=== PATIENT | male | born 1950 | race Caucasian/White ===

== ENCOUNTER 2020-06-24 12:34 | Inpatient (IN) | payer MEDICARE, MEDICAID ==
[~2020-06-24] VITALS: Ht 167.6 cm; Wt 89.8 kg
[2020-06-24 12:45] VITALS: BP 135/94
--- NOTE | 2020-06-24 12:45 | NUR ---
ED Nurse Note: Pt was brought in by ambulance from [facility] d/t generalized weakness and abnormal labs. Per SNF, Cr and BUN were elevated. Pt is A+Ox1 @ arrival, which is his baseline per SNF staff. Respirations even and unlabored on room air. Vitals stable as documented. Per SNF, pt was positive for Covid, but then tested negative on 06/03/20. No acute distress noted at this time. Pt placed on monitor.
[2020-06-24] MEDS ORDERED: LIPITOR80 MG ORAL (13:09)
[2020-06-24] MEDS ORDERED: ALLOPURINOL300 M1 ORAL (13:09)
[2020-06-24] MEDS ORDERED: OXYTROL1 EACH TD (13:09)
[2020-06-24] MEDS ORDERED: CARVEDILOL12.5 MG ORAL (13:09)
[2020-06-24] MEDS ORDERED: OMEPRAZOLE20 M2 ORAL (13:09)
[2020-06-24] MEDS ORDERED: FLOMAX0.4 MG ORAL (13:09)
[2020-06-24] MEDS ORDERED: METFORMIN HCL1000 M1 ORAL (13:09)
[2020-06-24] MEDS ORDERED: REPAGLINIDE1 MG PO (13:09)
[2020-06-24] MEDS ORDERED: GABAPENTIN100 MG ORAL (13:09)
[2020-06-24] MEDS ORDERED: LOSARTAN POTASS50 MG ORAL (13:09)
[2020-06-24] MEDS ORDERED: IBUPROFEN600 M1 ORAL (13:09)
[2020-06-24] MEDS ORDERED: SYNTHROID25 MCG ORAL (13:09)
[2020-06-24] MEDS ORDERED: HUMALOG100 UNIT/4 SUBQ (13:09)
[2020-06-24] MEDS ORDERED: PROSCAR5 MG ORAL (13:09)
[2020-06-24] MEDS ORDERED: ACETAMINOPHEN325 M1 ORAL (13:09)
[2020-06-24] MEDS ORDERED: TRAMADOL HCL50 MG ORAL (13:09)
[2020-06-24] MEDS ORDERED: LITHIUM CARBON300 MG ORAL (13:09)
--- NOTE | 2020-06-24 13:16 | Emergency Room Report ---
History of Present Illness General Chief Complaint: Abnormal Labs Source: Medical Record (Mook Max MD) Present Illness HPI Disclaimer: Please note that this report is being documented using [employer] technology. This can lead to erroneous entry secondary to incorrect interpretation by the dictating instrument. HPI: 70-year-old male history of dementia presents for evaluation of abnormal labs. Patient found to have elevated BUN and creatinine on routine lab testing according to PMD. He is a poor historian has a history of dementia and is alert and oriented to self only. No acute distress reported from patient. Does not appear to be in distress. No further information obtained from patient. 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 EOMI. Cardiovascular: RRR. S1 and S2 normal. No murmur appreciated Resp: Normal work of breathing. No cough, wheezing or crackles appreciated Abdomen: Abdomen is soft, nondistended. Skin: Intact. No abrasions, laceration or rash over the exposed skin MSK: Normal tone and bulk. Moving all extremities. No obvious deformity. Neuro: Awake and alert to self only. No acute distress (Mook Max MD) Medical Decision Making Diagnostic Impression: Primary Impression: Acute kidney failure Qualified Codes: N17.9 - Acute kidney failure, unspecified ER Course Is a 70-year-old male presenting from nursing facility for evaluation of elevated BUN/creatinine. According to paperwork BUN was 54 and creatinine was 3.1. Will redraw labs and arrange for admission. IV fluids started. (Mook Max MD) ER Course 70-year-old male with CHAN unknown cause, history is limited, plan for admission to Dr. Daugherty for evaluation. prerenal vs intrinsic vs post renal chan Laboratory Tests Test 06/24/20 13:20 White Blood Count 11.2 K/UL (4.8-10.8) H Red Blood Count 4.34 M/UL (4.70-6.10) L Hemoglobin 13.0 G/DL (14.2-18.0) L Hematocrit 40.2 % (42.0-52.0) L Mean Corpuscular Volume 93 FL (80-99) Mean Corpuscular Hemoglobin 29.9 PG (27.0-31.0) Mean Corpuscular Hemoglobin Concent 32.3 G/DL (32.0-36.0) Red Cell Distribution Width 14.4 % (11.6-14.8) Platelet Count 307 K/UL (150-450) Mean Platelet Volume 7.0 FL (6.5-10.1) Neutrophils (%) (Auto) 69.3 % (45.0-75.0) Lymphocytes (%) (Auto) 20.9 % (20.0-45.0) Monocytes (%) (Auto) 4.6 % (1.0-10.0) Eosinophils (%) (Auto) 4.1 % (0.0-3.0) H Basophils (%) (Auto) 1.1 % (0.0-2.0) Urine Color Pale yellow Urine Appearance Clear Urine pH 5 (4.5-8.0) Urine Specific [place] 1.015 (1.005-1.035) Urine Protein 2+ (NEGATIVE) H Urine Glucose (UA) Negative (NEGATIVE) Urine Ketones Negative (NEGATIVE) Urine Blood Negative (NEGATIVE) Urine Nitrite Negative (NEGATIVE) Urine Bilirubin Negative (NEGATIVE) Urine Urobilinogen Normal MG/DL (0.0-1.0) Urine Leukocyte Esterase Negative (NEGATIVE) Urine RBC 0 /HPF (0 - 0) Urine WBC 0-2 /HPF (0 - 0) Urine Squamous Epithelial Cells Few /LPF (NONE/OCC) Urine Bacteria Occasional /HPF (NONE) Sodium Level 137 MMOL/L (136-145) Potassium Level 4.4 MMOL/L (3.5-5.1) Chloride Level 104 MMOL/L (98-107) Carbon Dioxide Level 22 MMOL/L (21-32) Anion Gap 11 mmol/L (5-15) Blood Urea Nitrogen 58 mg/dL (7-18) H Creatinine 2.9 MG/DL (0.55-1.30) H Estimated Glomerular Filtration Rate 21.6 mL/min (>60) Glucose Level 154 MG/DL (74-106) H Lactic Acid Level 1.20 mmol/L (0.4-2.0) Calcium Level 10.8 MG/DL (8.5-10.1) H Total Bilirubin 0.5 MG/DL (0.2-1.0) Aspartate Amino Transferase (AST) 15 U/L (15-37) Alanine Aminotransferase (ALT) 25 U/L (12-78) Alkaline Phosphatase 138 U/L (46-116) H Total Creatine Kinase 26 U/L (26-308) Creatine Kinase MB 1.1 NG/ML (0.0-3.6) Creatine Kinase MB Relative Index 4.2 Troponin I 0.000 ng/mL (0.000-0.056) Total Protein 8.4 G/DL (6.4-8.2) H Albumin 3.8 G/DL (3.4-5.0) Globulin 4.6 g/dL Albumin/Globulin Ratio 0.8 (1.0-2.7) L (Robles Garzon MD) Rhythm Strip Diag. Results Rhythm Strip Time: 14:35 EP Interpretation: yes Rate: 88 Rhythm: NSR, no PVC's, no ectopy (Robles Garzon MD) Last Vital Signs Date Time Temp Pulse Resp B/P (MAP) Pulse Ox O2 Delivery O2 Flow Rate FiO2 06/24/20 12:35 97.9 72 20 130/90 (103) 97 Room Air (Mook Max MD) Disposition: ADMITTED INPATIENT Condition: Stable Referrals: Guillaume Daugherty MD (PCP) Mook Max MD Jun 24, 2020 13:16 Robles Garzon MD Jun 24, 2020 15:20
--- NOTE | 2020-06-24 13:32 | NUR ---
ED Nurse Note: blood and urine sent to lab
[2020-06-24 14:05] LABS: APPEARANCE,URINE CLEAR; BILIRUBIN, URINE NEGATIVE (NEGATIVE); COLOR,URINE PALE YELLOW; GLUCOSE, URINE (UA) NEGATIVE (NEGATIVE); KETONES,URINE NEGATIVE (NEGATIVE); LEUKOCYTE ESTERASE ,URINE NEGATIVE (NEGATIVE); NITRITE,URINE NEGATIVE (NEGATIVE); PH,URINE 5 (4.5-8.0); PROTEIN,URINE 2+ (NEGATIVE); UROBILINOGEN,URINE NORMAL MG/DL (0.0-1.0)
[2020-06-24 14:08] LABS: BASOPHILS % (AUTO) 1.1 % (0.0-2.0); EOSINOPHILS % (AUTO) 4.1 % (0.0-3.0); HEMATOCRIT 40.2 % (42.0-52.0); LYMPHOCYTES % (AUTO) 20.9 % (20.0-45.0); MEAN CORPUSCULAR VOLUME 93 FL (80-99); MONOCYTES % (AUTO) 4.6 % (1.0-10.0); NEUTROPHILS % (AUTO) 69.3 % (45.0-75.0); PLATELET COUNT 307 K/UL (150-450); RED BLOOD COUNT 4.34 M/UL (4.70-6.10); RED CELL DISTRIBUTION WIDTH 14.4 % (11.6-14.8); WHITE BLOOD COUNT 11.2 K/UL (4.8-10.8)
[2020-06-24 14:29] LABS: ANION GAP 11 mmol/L (5-15); BLOOD UREA NITROGEN 58 mg/dL (7-18); CALCIUM 10.8 MG/DL (8.5-10.1); CARBON DIOXIDE 22 MMOL/L (21-32); CHLORIDE 104 MMOL/L (98-107); CREATININE 2.9 MG/DL (0.55-1.30); POTASSIUM 4.4 MMOL/L (3.5-5.1); SODIUM 137 MMOL/L (136-145)
--- NOTE | 2020-06-24 14:33 | Diagnostic Imaging Report ---
Procedure: XRAY Chest 1v Reason for study: Shortness of breath. Comparison films: None. FINDINGS: A single one view chest is obtained. Vascularity is normal. There is mild haziness left lung base. This may be related to pericardial fat pad or mild atelectasis. Streaky atelectasis also noted in the left perihilar region. Cardiac and mediastinal silhouette are within normal limits. CP angles are sharp. The bony thorax appear unremarkable. IMPRESSION: Left lung atelectasis.
[2020-06-24 14:38] LABS: ALANINE AMINOTRANSFERASE 25 U/L (12-78); ALBUMIN 3.8 G/DL (3.4-5.0); ALBUMIN/GLOBULIN RATIO 0.8 (1.0-2.7); ALKALINE PHOSPHATASE 138 U/L (46-116); ASPARTATE AMINO TRANSFERASE 15 U/L (15-37); BILIRUBIN,TOTAL 0.5 MG/DL (0.2-1.0); CKMB 1.1 NG/ML (0.0-3.6); CREATINE KINASE 26 U/L (26-308)
[2020-06-24 14:40] VITALS: BP 132/84
--- NOTE | 2020-06-24 15:06 | NUR ---
ED Nurse Note: Report given to ADINA Ruiz on 2E.
--- NOTE | 2020-06-24 15:40 | NUR ---
ED Nurse Note: Pt transferred safely to 2E on the monitor. Pt has no belongings
--- NOTE | 2020-06-24 16:00 | NUR ---
NURSE NOTES: Received pt from MAPPING SUPERVISORADINA Gutierrez. all admission assessments and instructions done, pt is awake and confused and orient x1, pt is in RA, no SOB or acute respiratory distress noted. pt has intact iv access RFA 20G SL. Pt is on continues heart monitoring. Dr Daugherty is aware about admission and all orders noted and carried out. RN put condom cath for pt and Dr Daugherty is aware. Dr Daugherty is aware BUN 58 CREA 2.9 and other lab results and V/S ordered consult with Dr De Leon. pt has wound on feet and redness sacral and buttock, took pictures and uploaded. all needs attended, bed is locked and is in the lowest position, call light within easy reach. will continue to monitor.
[2020-06-24 16:15] VITALS: BP 115/60
[2020-06-24] MEDS ORDERED: LORazepam Inj 2mg/ml 1ml IV PRN (16:15)
--- NOTE | 2020-06-24 17:15 | NUR ---
NURSE NOTES: Dr De Leon is aware about consult, she will come to visit pt. RN called SNF and all necessary information got from ADINA Lewis.
[2020-06-24] MEDS: cefTRIAXone 1 GM in D5W 55 ML IVPB SCH (17:40)
--- NOTE | 2020-06-24 19:10 | NUR ---
HAND-OFF: Report given to ADINA Yang. Pt is awake and stable, no stress noted, endorsed plan of care.
--- NOTE | 2020-06-24 19:11 | NUR ---
NURSE NOTES: Dr Larson called back and asked the name of sharon, RN informed MD about meds, waiting to call back. Addendum: 06/24/20 at 1912 by Joseph Hinson RN ERROR WRONG PT.
--- NOTE | 2020-06-24 19:21 | NUR ---
NURSE NOTES: Patient received from Joseph RN. Patient in stable condition. Alert and oriented x1. On room air saturating well at 96%. On NPO for swallow eval tomorrow AM. IV site at Right FA 20G patent and intact with 1/2NS running at 100mls/hr. Fall precautions in place. Side rails up x 3, bed in lowest position and locked. Bedside table and call light within reach. Will continue plan of care.
[2020-06-24 20:00] VITALS: BP 111/65
--- NOTE | 2020-06-24 20:00 | History and Physical Report ---
DATE OF ADMISSION: 06/24/2020 HISTORY OF PRESENT ILLNESS: This is a 70-year-old Malagasy male, who came to the emergency room for having confusion and was found to have acute renal failure. The patient is confused, has poor p.o. intake for the last few days. Ordered lab at skilled nursing, was found as acute renal failure, and sent to the ER. The patient is opening his eyes and moving his hand, but is confused. He has no distress. PAST MEDICAL HISTORY: Significant for COVID pneumonia, hypertension, hyperlipidemia, comorbid obesity, hypothyroidism, GERD, dysphagia, failure to thrive, and chronic back pain. MEDICATIONS: See the list. ALLERGIES: NKA. FAMILY HISTORY: Noncontributory. SOCIAL HISTORY: Lives at skilled nursing, mostly bedbound. REVIEW OF SYSTEMS: Cannot be obtained. PHYSICAL EXAMINATION: GENERAL: This is an elderly obese male, currently comfortable. VITAL SIGNS: Blood pressure is 115/60, pulse 81, respirations 18, and temperature 96.1. SKIN: Dry. HEENT: Eyes are open. NECK: Supple. CHEST: Bilateral decreased breath sounds. CARDIOVASCULAR: Regular rhythm. No gallop. No murmur. ABDOMEN: Soft. Positive bowel sounds. EXTREMITIES: Chronic venous stasis changes. GENITOURINARY: Deferred. LABORATORY DATA: White count 11,000, hemoglobin 13, hematocrit 40, platelets are 307,000. Chemistry panel, sodium 137, potassium 4.4, BUN 58, creatinine 2.9, glucose 154. Urine is showing 2+ protein. His imaging, chest x-ray, left lung atelectasis. ASSESSMENT AND PLAN: 1. Altered mental status. 2. Acute renal failure. 3. Hypertension. 4. Diabetes. 5. Metabolic encephalopathy. 6. History of COVID. We will currently admit on medical floor. NPO. Because of confusion, we will add ceftriaxone, lorazepam, and Tylenol. Consider Nephrology consult. Monitor BUN and creatinine and monitor. Swallow evaluation tomorrow. Genaro Daugherty M.D. DR: Jin JOB#: [id number] CC:
[2020-06-24] MEDS: Heparin 5000 units/ml inj SUBQ SCH (21:17)
[2020-06-25] VITALS: BP 114/55
[2020-06-25 04:00] VITALS: BP 108/50
[2020-06-25] MEDS: Heparin 5000 units/ml inj SUBQ SCH ×3 (05:13→22:10)
[2020-06-25 06:36] LABS: BASOPHILS % (AUTO) 1.1 % (0.0-2.0); EOSINOPHILS % (AUTO) 7.4 % (0.0-3.0); HEMATOCRIT 37.7 % (42.0-52.0); HEMOGLOBIN 12.1 G/DL (14.2-18.0); LYMPHOCYTES % (AUTO) 27.5 % (20.0-45.0); MEAN CORPUSCULAR VOLUME 94 FL (80-99); MONOCYTES % (AUTO) 6.5 % (1.0-10.0); NEUTROPHILS % (AUTO) 57.5 % (45.0-75.0); PLATELET COUNT 258 K/UL (150-450); RED CELL DISTRIBUTION WIDTH 14.6 % (11.6-14.8); WHITE BLOOD COUNT 8.2 K/UL (4.8-10.8)
--- NOTE | 2020-06-25 07:28 | NUR ---
HAND-OFF: Report given to Joseph HOLDEN. Patient in stable condition. Endorsed plan of care.
--- NOTE | 2020-06-25 07:30 | NUR ---
NURSE NOTES: Received pt from ADINA Yang.pt is sleeping, pt is in RA, no SOB or acute respiratory distress noted. pt has intact iv access RFA 20G is running well. Pt is on continues heart monitoring. pt is NPO due to order. pt has condom cath in place is working well. all needs attended, bed is locked and is in the lowest position, call light within easy reach. will continue to monitor.
[2020-06-25 07:32] LABS: ANION GAP 10 mmol/L (5-15); BLOOD UREA NITROGEN 46 mg/dL (7-18); CALCIUM 9.9 MG/DL (8.5-10.1); CARBON DIOXIDE 22 MMOL/L (21-32); CHLORIDE 107 MMOL/L (98-107); CREATININE 1.9 MG/DL (0.55-1.30); SODIUM 139 MMOL/L (136-145)
[2020-06-25 08:00] VITALS: BP 122/55
--- NOTE | 2020-06-25 11:14 | General Progress Note ---
Progress Note Progress Note full note dictated Reema De Leon MD Jun 25, 2020 11:14
[2020-06-25 11:54] VITALS: BP 123/64
--- NOTE | 2020-06-25 12:15 | NUR ---
NURSE NOTES: Urin specimen sent to lab, waiting for result.
[2020-06-25 12:46] LABS: APPEARANCE,URINE CLEAR; BILIRUBIN, URINE NEGATIVE (NEGATIVE); COLOR,URINE PALE YELLOW; GLUCOSE, URINE (UA) NEGATIVE (NEGATIVE); KETONES,URINE NEGATIVE (NEGATIVE); LEUKOCYTE ESTERASE ,URINE NEGATIVE (NEGATIVE); NITRITE,URINE NEGATIVE (NEGATIVE); PH,URINE 5 (4.5-8.0); PROTEIN,URINE NEGATIVE (NEGATIVE); UROBILINOGEN,URINE NORMAL MG/DL (0.0-1.0)
--- NOTE | 2020-06-25 14:02 | NUR ---
SWALLOW EVAL (full report found in care activity section) PATIENT REFERRED TO BY DR. VELASCO. DYSPHAGIA RISK FACTORS FOR THIS 70 Y.O. MALE: ACUTE: Acute renal failure, AMS, ongoing poor PO for the last few days, DM, metabolic encephalopathy. H/O: COVID pneumonia, hypertension, hyperlipidemia, comorbid obesity, hypothyroidism, GERD, dysphagia, failure to thrive, chronic back pain, schizoaffective disorder, COPD with acute exacerbation, PNA, ankylosing spondylitis lumbar region, idiopathic peripheral autonomic neuropathy, oropharyngeal dysphagia, acute embolism and thrombosis of unspec bilateral deep veins LE, gout, anxiety disorder, spinal stenosis. VITALS ON ROOM AIR: HR: 74; RR: 18; SP02 95% RELEVANT MEDS: Ativan (Agitation). PLOF: At SNF Patient consumes Puree and [place] Thick Liquids diet. PLOST: Full code, no wishes for alternative nutrition/hydration. PER RN: Patient was agitated on admission therefore, given Ativan. Patient continues to be very lethargic. Patient seen at bedside for swallow evaluation. MANAGER LINUX re-attempted to see the Patient on 3 occasions due to Patient being extremely lethargic and unable to maintain alertness for swallow evaluation. Patient did produce minimal verbal output with articulation being imprecise and lingual ROM/coordination being mild to mod reduced. Patient is edentulous, oral hygiene is fair. INITIAL IMPRESSIONS: Moderate to Marked Oropharyngeal Dysphagia compounded by significant cognitive behavioral deficits (AMS, Metabolic Encephalopathy) and exacerbated by Patient's h/o dysphagia (and having modified diet) with reduced and prolonged oral preparation and oropharyngeal transit times, oral motor ROM and coordination is reduced, laryngeal elevation present upon palpations appears slightly delayed, Patient noted with multiple swallows per 1 teaspoon, no significant overt s/s of aspiration with puree or nectar thick liquids. Patient given trials of puree solids and nectar thick liquids via teaspoon, oral phase characterized by moderately prolonged oral motor coordination and preparation of bolus, delayed A-P transit to BOT, mild oral residuals remaining in oral cavity Patient swallowed with multiple swallows, laryngeal elevation appears mildly delayed, no significant overt s/s of aspiration. Immediately after PO trials Patient fell back asleep. Given Patient's severity of lethargy, Patient is not safe for PO until Patient is more awake. PLEASE WAIT TO FEED PATIENT ANY PO UNTIL PATIENT IS ABLE TO BE POSITIONED UPRIGHT TO 90 DEGREES AND AWAKE FOR MEAL. PATIENT IS A HIGH RISK FOR ASPIRATION AND POOR PO GIVEN SIGNIFICANT COGNITIVE BEHAVIORAL DEFICITS (AMS, METABOLIC ENCEPHALOPATHY, LETHARGY) AND H/O DYSPHAGIA. RECOMMENDATIONS: 1. Moist Puree with [place] Thick Liquids via teaspoons only and 1 to 1 careful feeding while implementing aspiration precautions. --Defer to RD for type/supplements 2. MANAGER LINUX will f/u for diet tolerance and dysphagia tx. 3. Patient would benefit from MBSS while in house to assess swallow physiology. 4. Nursing please assist Patient with oral care/hygiene BID to minimize oral biofilm RN made aware of results, recommendations, and plan. MANAGER LINUX will f/u. MANAGER LINUX spoke with Dr. Asif regarding Patients lethargy and concern for aspiration risk. Thank you for this referral! MANAGER LINUX [phone] Addendum: 06/25/20 at 1408 by RAINA WESLEY MANAGER LINUX ERROR: PATIENT REFERRED TO FOR BEDSIDE SWALLOW EVALUATION BY DR. ASIF.
--- NOTE | 2020-06-25 14:18 | Diagnostic Imaging Report ---
EXAM: ULTRASOUND US Renal Comp CLINICAL HISTORY: Abdominal pain. COMPARISON: None TECHNIQUE: Ultrasound examination of the kidneys includes grayscale images, and color and spectral doppler analysis. FINDINGS: The right kidney measures 10.7 x 5 x 5.1 cm and the left kidney measures 10.7 x 6 x 5.2 cm. Cortical thickness and echogenicity are within normal limits. There is a right renal cyst. There is no hydronephrosis or stone seen bilaterally. Bladder appears trabeculated. IMPRESSION: NO OBSTRUCTIVE UROPATHY. BLADDER APPEARS TRABECULATED.
--- NOTE | 2020-06-25 15:30 | Consultation ---
DATE OF CONSULTATION: 06/25/2020 NEPHROLOGY CONSULTATION CONSULTING PHYSICIAN: Reema De Leon MD. REFERRING PHYSICIAN: Guillaume Daugherty MD. REASON FOR CONSULTATION: Acute renal failure. HISTORY OF PRESENT ILLNESS: The patient is an unfortunate 70-year-old male with past medical history significant for history of dementia, hypertension, COPD, diabetes, dysphagia and GERD, who was transferred to [facility] for evaluation of abnormal labs. The patient upon admission found to have a BUN of 58, creatinine 2.9. Upon evaluation in the ER, the patient was found to be having temperature of 97, pulse rate 72, respiratory rate of 27. The patient was evaluated in the ER, found to have an acute renal failure, was admitted on monitored bed. I was called for management of renal disease and electrolyte imbalance. PAST MEDICAL HISTORY: Including history of dementia, history of COPD, and history of hypertension, history of dyslipidemia, and history of diabetes. PAST SURGICAL HISTORY: None. ALLERGIES: No known drug allergies. MEDICATIONS: List was reviewed. SOCIAL HISTORY: He lives at . There is no current history of tobacco, alcohol, or drug use. FAMILY HISTORY: Noncontributory. REVIEW OF SYSTEMS: Unable to obtain. The patient at this point received sedation. He is opening his eyes with verbal stimuli and follow simple commands, but not able to provide appropriate answers to my questions. PHYSICAL EXAMINATION: VITAL SIGNS: The patient has temperature of 97, blood pressure 122/55, pulse rate of 76. HEENT: Extraocular movement intact. Pupils are reactive to light and accommodation. NECK: No JVP. No LAD. No thyromegaly. LUNGS: Clear to auscultation. CARDIAC: Regular rate and rhythm. S1-S2. No murmur. No rub. ABDOMEN: Soft, nontender, and nondistended. EXTREMITIES: No edema. No clubbing. No cyanosis. LABORATORY DATA: The patient has sodium 137, potassium 4.4, chloride 104, bicarb 22, BUN of 58, creatinine of 2.9. AST of 15, ALT of 25, and alkaline phosphatase was 138. CBC revealed WBC count of 11, hemoglobin of 13, hematocrit 40, platelet count of 307,000. UA revealed specific gravity of 1.015, protein 2+, wbc of 0 to 2, rbc of 0 to 2. ASSESSMENT: 1. Acute renal failure, ATN due to unstable hemodynamics. Rule out obstructive uropathy. Rule out hypertensive nephrosclerosis. 2. Hypertension, which at this point blood pressure is under well control. 3. Altered mental status, most likely due to medication. PLAN: Plan for the patient is obtaining UA, check the random urine creatinine ratio to calculate the proteinuria. Check the urine sodium and creatinine to calculate fractional excretion of sodium. Ultrasound of the kidney to evaluate the kidney size. Check the post-void residual volume. Avoid any NSAID or nephrotoxic. Monitor renal function and electrolytes closely. At the end, I would like to thank Dr. Daugherty for allowing me to participate in the care of this patient. Reema De Leon M.D. DR: FITO JOB#: [id number] CC:
--- NOTE | 2020-06-25 15:38 | NUR ---
CASE MANAGEMENT:REVIEW 70 YR OLD MALE BIBA FROM [facility]' CC: ABNORMAL LABS AND GENERALIZED WEAKNESS SI: ACUTE RENAL FAILURE 97.9 72 20 130/90 97% ON RA BUN+58 CR+2.9 GLUCOSE+154 IS: 1L NS BOLUS CHEST XRAY `BLOOD CX : TO TELEMETRY IS: HEPARIN SQ Q8HRS IV ROCEPHIN Q24 IVF@100/HR IV ATIVAN Q6HRS PRN RENAL US
[2020-06-25 16:00] VITALS: BP 121/64
[2020-06-25] MEDS: cefTRIAXone 1 GM in D5W 55 ML IVPB SCH (17:16)
--- NOTE | 2020-06-25 18:04 | NUR ---
NURSE NOTES:WOUND CARE NOTES:Pt presented on admission with Incontinence Associated Dermatitis, Multiple Pressure Injuries. Non-Blanching erythema without induration noted to sacrum . Bilat groin, scrotum and medial aspects of both upper thighs are grossly erythematous and denuded. Pt becomes agitated to slightest touch. R heel including Plantar aspect is boggy with non-Blanchable erythema. Tender when minimally palpated (L)6.5cm x (W)8cm. L Heel is boggy with non-Blanchable erythema. Tender when minimally palpated (L)7cm x (W)7.5cm. Haemosiderin with xerosis skin Bilat lower extremities. Tx.Plan: Apply Zinc-Oxide Paste to Bilat Groin, scrotum and medial aspects of both upper thighs Three Times daily and prn. Cover Sacrum and both hips with Optifoam drsgs. Change every 3 days and prn. Apply Cavilon Skin Barrier to Both heels and malleoli. Cover each site with Optifoam drgs. Change every 7 days and prn. Apply Phytoplex Skin Nourishing Lotion to both lower ext Daily and prn. Reposition at least every 2hours or as tolerated. Off-load heels with pillow.
--- NOTE | 2020-06-25 19:15 | NUR ---
NURSE NOTES: Patient received from Joseph RN. Patient in stable condition. Alert and oriented x1. Condom catheter in place draining well. On room air saturating well. On NPO but will start NGT Glucerna 1.2 once placement is verified. Right FA 20G IV site patent and intact running 1/2NS @ 100mls/hr. On soft restraints. Side rails up. Bed in lowest position and locked. Call light and bedside table within reach. Will continue plan of care.
--- NOTE | 2020-06-25 19:22 | NUR ---
HAND-OFF: Report given to Celia HOLDEN. Pt is sleeping and stable, no stress noted, endorsed plan of care, KUB done and endorsed if confirmed NG tube placement start NG tube feeding.
--- NOTE | 2020-06-25 19:50 | Diagnostic Imaging Report ---
EXAM: XR Abdomen, 2 Views CLINICAL HISTORY: NGT TECHNIQUE: Frontal view of the abdomen/pelvis with upright view of the abdomen. COMPARISON: No relevant prior studies available. FINDINGS: See Impression. IMPRESSION: 1. Transesophageal catheter identified, tip at the first portion of the duodenum. 2. Normal bowel gas pattern. 3. No suspicious calcifications. 4. Degenerative changes of the spine.
[2020-06-25 20:00] VITALS: BP 123/68
--- NOTE | 2020-06-25 21:30 | NUR ---
NURSE NOTES: NGT placement verified. Started NGT Glucerna 1.2 @ 15mls/hr. Will increase until Goal of 30mls/hr is achieved if tolerated well by patient. Head of bed elevated. Will continue to monitor.
--- NOTE | 2020-06-25 22:30 | Progress Note ---
DATE: 06/25/2020 SUBJECTIVE: This is a 70-year-old male, confused. Opens his eyes. Moving his hand. OBJECTIVE: VITAL SIGNS: Blood pressure 121/64, pulse 74, no fever. CHEST: Bilateral decreased breath sounds. CARDIOVASCULAR: Regular rhythm. ABDOMEN: Soft. EXTREMITIES: CCE. LABORATORY DATA: White counts are 8.2, hemoglobin is 12. Chemistry panel, BUN 14, creatinine 1.9, is improving. Urine is . His renal ultrasound, no obvious uropathy. ASSESSMENT: 1. Altered mental status. 2. Metabolic encephalopathy. 3. Hypertension. 4. Diabetes. 5. Dysphagia. 6. Depression. PLAN: We will add NG tube and feeding. Continue current treatment. Hold Ativan. Psych is also on case. Genaro Daugherty M.D. DR: NIKIA JOB#: [id number] CC:
[2020-06-26] VITALS: BP 129/77
--- NOTE | 2020-06-26 03:00 | NUR ---
NURSE NOTES: Patient tolerating well 20mls/hr feeding. Increased to 30mls/hr. Will continue to monitor.
[2020-06-26 04:00] VITALS: BP 144/71
--- NOTE | 2020-06-26 04:32 | NUR ---
NURSE NOTES: Patient tolerating feeding well. Increased to 20mls/hr. Will monitor and increase to 30mls/hr once tolerated. Addendum: 06/26/20 at 0434 by Celia Rogers RN Wrong time documentation. Done @ 12am
[2020-06-26] MEDS: Heparin 5000 units/ml inj SUBQ SCH ×3 (05:56→21:36)
--- NOTE | 2020-06-26 07:30 | NUR ---
NURSE NOTES: Received report from Celia/RN. Patient is sleeping, lying semi-fowlers, resting comfortably. NG tube running at 30cc/hr, on Room air, no distress or SOB noted. On bilateral soft wrist restrains for safety measures. IV on left FA 20G, 1/2NS running at 100cc/hr, patent and clean. Condom cath draining well to gravity. Bed in low position and locked. Call light within reach, encouraged to use call light when needed. Will continue plan of care
--- NOTE | 2020-06-26 07:36 | NUR ---
HAND-OFF: Report given to Carey RN. Patient in stable condition. Endorsed plan of care
[2020-06-26 08:00] VITALS: BP 143/69
--- NOTE | 2020-06-26 09:18 | NUR ---
CASE MANAGEMENT: REVIEW 06/26/2020 SI: ACUTE RENAL FAILURE 98.1 HR 82 RR 20 B/P 143/69 SATS 100% ON RA LABS: NONE TODAY IS: NS @ 100 ML/HR CEFTRIAXONE IV Q24H : TO TELEMETRY
--- NOTE | 2020-06-26 09:58 | NUR ---
RD ASSESSMENT & RECOMMENDATIONS SEE CARE ACTIVITY FOR COMPLETE ASSESSMENT DAILY ESTIMATED NEEDS: Needs based on Obese, wounds, DM / 65kg abw 25-28 kcals/kg 2961-7338 total kcals 1.25-1.5 g protein/kg 81-97 g total protein 25-30 mL/kg 6775-1137 total fluid mLs NUTRITION DIAGNOSIS: Swallowing difficulty R/T dysphagia, AMS as evidenced by pt on pureed texture w/ NTL FARMWORKER VEGETABLE, currently s/p NGT insertion, on NGT feeds. CURRENT TF:Glucerna 1.2 @ 30ml/hr x 24 hrs PO DIET RECOMMENDATIONS: When safe for oral diet -> LOW NA, CCHO MED/ texture per PRECISION LAYOUT WORKER ENTERAL NUTRITION RECOMMENDATIONS: Glucerna 1.2 @ 57ml/hr x 24 hrs to provide 1368ml, 1642kcal, 82g prot, 1104ml free water * Increase goal rate to 57ml/hr x 24 hrs to meet 100% est kcal/prot needs -> Advance 10ml q 4-6 hrs as tolerated to goal rate * HOB over 30 degrees/ water flush per MD ADDITIONAL RECOMMENDATIONS: * Calibrated bedscale wt * Monitor oral diet vs continued need for NGT feeds * NISS w/ TF: h/o DM * Monitor lytes, replete as needed * Wound healing: Add Vit C 250mg QD, MVI x 1 Gilberto BID
[2020-06-26 12:00] VITALS: BP 143/59
[2020-06-26 16:00] VITALS: BP 147/63
--- NOTE | 2020-06-26 16:50 | Nephrology Progress Note ---
Assessment/Plan Assessment 1.CHAN 2.CKD 3.HTN Plan Plan check BMP switch feeding continue IVF Subjective ROS Limited/Unobtainable: Yes Subjective pt continue to be confused started on feeding , Had 3 BM per nurse Objective Objective Last 24 Hour Vital Signs Date Time Temp Pulse Resp B/P (MAP) Pulse Ox O2 Delivery O2 Flow Rate FiO2 06/26/20 16:00 97.8 91 20 147/63 (91) 100 06/26/20 16:00 82 06/26/20 12:00 73 06/26/20 12:00 97.9 79 20 143/59 (87) 99 06/26/20 09:00 Room Air 06/26/20 08:00 98.1 82 20 143/69 (93) 100 06/26/20 08:00 74 06/26/20 04:00 97.3 66 22 144/71 (95) 94 06/26/20 04:00 77 06/26/20 00:00 97.7 82 22 129/77 (94) 98 06/25/20 21:00 Room Air 06/25/20 20:00 96.4 80 20 123/68 (86) 97 06/25/20 20:00 80 Intake and Output 06/25/20 06/26/20 19:00 07:00 Intake Total 1155 ml Output Total 900 ml Balance 255 ml Intake IV Total 1155 ml Output Urine Total 900 ml # Voids 2 # Bowel Movements 1 2 Height (Feet): 5 Height (Inches): 6.00 Weight (Pounds): 200 Objective HEENT: Extraocular movement intact. Pupils are reactive to light and accommodation. NECK: No JVP. No LAD. No thyromegaly. LUNGS: Clear to auscultation. CARDIAC: Regular rate and rhythm. S1-S2. No murmur. No rub. ABDOMEN: Soft, nontender, and nondistended. EXTREMITIES: No edema. No clubbing. No cyanosis. Reema De Leon MD Jun 26, 2020 16:50
--- NOTE | 2020-06-26 17:45 | Progress Note ---
DATE: 06/26/2020 The patient is still confused and slow and not answering. Plan was to put NG tube and start feeding. PHYSICAL EXAMINATION: VITAL SIGNS: Blood pressure is 130/70, pulse 84, respirations 18, no fever. CHEST: Bilaterally decreased breath sounds. CARDIOVASCULAR: Regular rhythm. ABDOMEN: Soft. EXTREMITIES: Chronic venous stasis changes. GENITOURINARY: Deferred. ASSESSMENT AND PLAN: 1. Altered mental status. 2. Acute renal failure. 3. Dehydration. 4. Dysphagia. 5. Diabetes. 6. Depression. We will currently continue IV fluid. NG tube was placed. An NG tube feeding. Monitor BUN and creatinine. Nephrology and Psychiatric are in consult. Genaro Daugherty M.D. DR: ELÍAS JOB#: [id number] CC:
[2020-06-26] MEDS: cefTRIAXone 1 GM in D5W 55 ML IVPB SCH (18:07)
--- NOTE | 2020-06-26 19:10 | NUR ---
HAND-OFF: Report given to Mai/RN. Patient in stable condition, endorsed plan of care.
--- NOTE | 2020-06-26 19:19 | NUR ---
NURSE NOTES: Report received from Marbella RN and Carey RN. Pt was resting comfortably in bed. Alert oriented x1. Nasogastric tube in place. Jevity 1.2 running 30ml/hr. IV site in tact patent, no erythema or bleeding noted and running 1/2 NS 100ml/hr as ordered. Patient bed at lowest position, brakes on, side rails up x3. Call light with in reach. Will continue plan of care.
[2020-06-26 20:00] VITALS: BP 174/72
[2020-06-27] VITALS: BP 165/61
--- NOTE | 2020-06-27 00:22 | NUR ---
NURSE NOTES: Notified Dr. Daugherty regarding patient's bp of 165/61. Awaiting callback for any further orders.
--- NOTE | 2020-06-27 03:30 | NUR ---
NURSE NOTES: Patient in bed restless. Alert oriented x1. Nasogastric tube in place. Jevity 1.2 running 30ml/hr.
[2020-06-27 04:00] VITALS: BP 120/50
[2020-06-27] MEDS: Heparin 5000 units/ml inj SUBQ SCH ×3 (06:55→21:17)
[2020-06-27 07:03] LABS: ANION GAP 8 mmol/L (5-15); BLOOD UREA NITROGEN 11 mg/dL (7-18); CARBON DIOXIDE 23 MMOL/L (21-32); CHLORIDE 106 MMOL/L (98-107); POTASSIUM 3.6 MMOL/L (3.5-5.1); SODIUM 137 MMOL/L (136-145)
--- NOTE | 2020-06-27 07:17 | NUR ---
HAND-OFF: Report given to Carey RN and Marbella RN. Patient is asleep lying semi-fowlers resting comfortably. Jevity 1.2 running at 30ml/hr. In stable condition.
--- NOTE | 2020-06-27 07:18 | NUR ---
NURSE NOTES: Received report from Mai/RN. Patient is laying semi-fowlers, resting comfortably. No distress or SOB noted. Patient is on room air, NG tube running at 30cc/hr. IV on left hand 22G with 1/2 NS running at 100cc/hr, patent and clean. Patient has bilateral soft wrist restrains for safety measures. Bed in lowest position and locked. Call light within reach. Will continue plan of care.
[2020-06-27 08:00] VITALS: BP 153/90
[2020-06-27] MEDS ORDERED: metFORMIN 500mg tab NG SCH (09:00)
[2020-06-27] MEDS ORDERED: traMADol 50mg tab NG PRN (09:00)
[2020-06-27] MEDS ORDERED: Tamsulosin 0.4mg cap ORAL SCH (09:00)
[2020-06-27] MEDS ORDERED: Gabapentin 300 MG/6 ML Soln NG SCH (09:00)
[2020-06-27] MEDS: Losartan 50mg tab NG SCH (09:21)
[2020-06-27] MEDS: Carvedilol 12.5mg tab NG SCH ×2 (09:22→21:15)
[2020-06-27] MEDS: Levothyroxine 25mcg tab NG SCH (09:26)
[2020-06-27] MEDS: metFORMIN 500mg tab NG SCH ×2 (09:28→17:27)
[2020-06-27] MEDS ORDERED: Acetaminophen 650mg/20.3ml ORAL PRN (09:30)
[2020-06-27] MEDS ORDERED: Sterile Water Irrig 1000ml IRRIG ONE (10:03)
[2020-06-27] MEDS ORDERED: 1/2 NS 1000ml IV ONE (10:03)
[2020-06-27 12:00] VITALS: BP 140/69
[2020-06-27] MEDS: Gabapentin 300 MG/6 ML Soln NG SCH ×2 (12:25→17:27)
[2020-06-27] MEDS: Repaglinide 1mg tab NG SCH ×3 (12:25→21:15)
[2020-06-27 16:00] VITALS: BP 127/65
--- NOTE | 2020-06-27 17:15 | Progress Note ---
DATE: 06/27/2020 SUBJECTIVE: This is elderly male, currently more awake, still weakness. The patient had fever this morning. OBJECTIVE: VITAL SIGNS: Blood pressure is fine. CHEST: Bilateral few crackles. CARDIOVASCULAR: Regular rhythm. ABDOMEN: Soft. EXTREMITIES: CCE. ASSESSMENT: 1. Altered mental status. 2. Acute renal failure. 3. Hyperkalemia. 4. Diabetes. 5. Depression. 6. Dementia. 7. Chronic back pain. PLAN: Nephrology on consult, probably we are giving another Kayexalate. We will start pureed diet, sliding scale, Accu-Chek. Continue home medications. Discussed with charge nurse. Genaro Daugherty M.D. DR: ELBA JOB#: [id number] CC:
[2020-06-27] MEDS: cefTRIAXone 1 GM in D5W 55 ML IVPB SCH (17:27)
--- NOTE | 2020-06-27 19:03 | NUR ---
HAND-OFF: Report given to Mai/RN. Patient in stable condition, endorsed plan of care.
--- NOTE | 2020-06-27 19:10 | NUR ---
NURSE NOTES: Report received from Marbella RN and Carey RN. Pt was resting in bed restless. Alert oriented x1. Nasogastric tube in place. Jevity 1.2 running 30ml/hr. IV site in tact patent, no erythema or bleeding noted and running 1/2 NS 100ml/hr as ordered. Patient bed at lowest position, brakes on, side rails up x3. Call light with in reach. Will continue plan of care.
[2020-06-27 20:00] VITALS: BP 127/67
[2020-06-27] MEDS ORDERED: Atorvastatin 20mg tab NG SCH (21:00)
[2020-06-27] MEDS: Acetaminophen 650mg/20.3ml NG PRN (21:14)
--- NOTE | 2020-06-27 22:22 | Nephrology Progress Note ---
Assessment/Plan Assessment 1.CHAN resolved 2.CKD 3.HTN Plan Plan monitoring renal function closely avoid NSAID replace electrolyte as need it continue feeding Subjective ROS Limited/Unobtainable: Yes Subjective pt continue to be confused Objective Objective Last 24 Hour Vital Signs Date Time Temp Pulse Resp B/P (MAP) Pulse Ox O2 Delivery O2 Flow Rate FiO2 06/27/20 21:44 97.8 06/27/20 21:15 68 127/67 06/27/20 21:00 Room Air 06/27/20 20:00 100.4 72 21 127/67 (87) 99 06/27/20 16:00 73 06/27/20 16:00 97.9 81 20 127/65 (85) 98 06/27/20 12:00 65 06/27/20 12:00 99.9 78 22 140/69 (92) 98 06/27/20 09:22 77 153/90 06/27/20 09:21 153/90 06/27/20 09:00 Room Air 06/27/20 08:00 99.3 91 22 153/90 (111) 98 06/27/20 08:00 77 06/27/20 04:00 67 06/27/20 04:00 98.4 82 20 120/50 (73) 100 06/27/20 00:00 99.9 81 20 165/61 (95) 99 06/27/20 00:00 76 Intake and Output 06/26/20 06/27/20 19:00 07:00 Intake Total 1035 ml 1230 ml Balance 1035 ml 1230 ml Intake IV Total 1005 ml 900 ml Tube Feeding 30 ml 330 ml # Voids 4 3 # Bowel Movements 5 Laboratory Tests 06/27/20 06:00: Sodium Level 137, Potassium Level 3.6, Chloride Level 106, Carbon Dioxide Level 23, Anion Gap 8, Blood Urea Nitrogen 11, Creatinine 1.0, Estimat Glomerular Filtration Rate > 60, Glucose Level 159H, Calcium Level 10.0 Height (Feet): 5 Height (Inches): 6.00 Weight (Pounds): 200 Objective HEENT: Extraocular movement intact. Pupils are reactive to light and accommodation. NECK: No JVP. No LAD. No thyromegaly. LUNGS: Clear to auscultation. CARDIAC: Regular rate and rhythm. S1-S2. No murmur. No rub. ABDOMEN: Soft, nontender, and nondistended. EXTREMITIES: No edema. No clubbing. No cyanosis. Reema De Leon MD Jun 27, 2020 22:22
[2020-06-28] VITALS: BP 117/60
--- NOTE | 2020-06-28 03:30 | NUR ---
NURSE NOTES: Patient in bed restless semi-fowlers. Alert oriented x1. Nasogastric tube in place. Jevity 1.2 running 30ml/hr.
[2020-06-28 04:00] VITALS: BP 115/57
[2020-06-28] MEDS: Levothyroxine 25mcg tab NG SCH (06:31)
[2020-06-28] MEDS: Repaglinide 1mg tab NG SCH ×4 (06:31→20:08)
[2020-06-28] MEDS: Heparin 5000 units/ml inj SUBQ SCH ×3 (06:32→23:22)
--- NOTE | 2020-06-28 07:27 | NUR ---
HAND-OFF: Report given to Babs RN. Patient is asleep lying semi-fowlers resting comfortably. Jevity 1.2 held for Levothyroxine medication. In stable condition
--- NOTE | 2020-06-28 07:39 | NUR ---
NURSE NOTES: Received patient in bed awake. No SOB or acute distress. NGTube intact, feeding on hold. Bilateral soft wrist restraints on, peripheral pulses palpable, no skin issues noted on site. IV line intact. HOB elevated. Bed locked in lowest position. Call light within reach. Will continue plan of care.
[2020-06-28 08:00] VITALS: BP 144/73
[2020-06-28] MEDS: metFORMIN 500mg tab NG SCH ×2 (09:03→18:23)
[2020-06-28] MEDS: Losartan 50mg tab NG SCH (09:03)
[2020-06-28] MEDS: Carvedilol 12.5mg tab NG SCH ×2 (09:03→20:08)
[2020-06-28] MEDS: Gabapentin 300 MG/6 ML Soln NG SCH ×3 (09:03→18:25)
--- NOTE | 2020-06-28 09:33 | NUR ---
RD ASSESSMENT & RECOMMENDATIONS SEE CARE ACTIVITY FOR COMPLETE ASSESSMENT DAILY ESTIMATED NEEDS: Needs based on Obese, wounds, DM / 65kg abw 25-28 kcals/kg 3671-3451 total kcals 1.25-1.5 g protein/kg 81-97 g total protein 25-30 mL/kg 4006-7469 total fluid mLs NUTRITION DIAGNOSIS: Swallowing difficulty R/T dysphagia, AMS as evidenced by pt on pureed texture w/ NTL HEALTHCARE MARKET CONSULTANT, currently s/p NGT insertion, on NGT feeds. CURRENT TF:Jevity 1.2 @ 30ml/hr x 22 hrs (PO DIET RECOMMENDATIONS: When safe for oral diet -> LOW NA, CCHO MED/ texture per MOLD FILLING OPERATOR) ENTERAL NUTRITION RECOMMENDATIONS: Glucerna 1.2 @ 65ml/hr x 22 hrs to provide 1430ml, 1716kcal, 86g prot, 1151ml free water * Rec TF change w/ rate increase to goal as above to better meets est needs w/ carb control formula. * Start @25ml/hr for 6 hrs, advance as tolerated 10ml/hr q4-6 hrs to goal. * HOLD TF 1 hr before and after synthroid meds. * HOB over 30 degrees/ water flush per MD --------- ADDITIONAL RECOMMENDATIONS: * Calibrated bedscale wt * Monitor oral diet vs continued need for NGT feeds * NISS w/ TF: h/o DM * Monitor lytes, replete as needed * Wound healing: Add Vit C 250mg QD, MVI x 1 Gilberto in 4oz water BID via NGT
--- NOTE | 2020-06-28 09:52 | NUR ---
NURSE NOTES: Tank Charger recommending: Glucerna 1.2 goal 65cc/hr instead of Jevity; 1 pack Gilberto BID via NG tube; accucheck with insulin sliding scale. Dr Daugherty made aware, awaiting any orders.
--- NOTE | 2020-06-28 09:55 | Nephrology Progress Note ---
Assessment/Plan Assessment 1.CHAN resolved 2.CKD 3.HTN Plan Plan monitoring renal function closely avoid NSAID replace electrolyte as need it continue feeding Subjective Subjective pt continue to be confused Objective Objective Last 24 Hour Vital Signs Date Time Temp Pulse Resp B/P (MAP) Pulse Ox O2 Delivery O2 Flow Rate FiO2 06/28/20 09:03 144/73 06/28/20 09:03 74 144/73 06/28/20 08:00 97.1 74 20 144/73 (96) 100 06/28/20 08:00 63 06/28/20 04:00 98.4 66 22 115/57 (76) 96 06/28/20 04:00 69 06/28/20 00:00 58 06/28/20 00:00 99.5 71 17 117/60 (79) 96 06/27/20 21:44 97.8 06/27/20 21:15 68 127/67 06/27/20 21:00 Room Air 06/27/20 20:00 100.4 72 21 127/67 (87) 99 06/27/20 20:00 72 06/27/20 16:00 73 06/27/20 16:00 97.9 81 20 127/65 (85) 98 06/27/20 12:00 65 06/27/20 12:00 99.9 78 22 140/69 (92) 98 Intake and Output 06/27/20 06/28/20 19:00 07:00 Intake Total 528 ml 1517 ml Balance 528 ml 1517 ml Intake Free Water 180 ml IV Total 498 ml 1007 ml Tube Feeding 30 ml 330 ml # Voids 2 2 # Bowel Movements 4 3 Height (Feet): 5 Height (Inches): 6.00 Weight (Pounds): 200 Objective HEENT: Extraocular movement intact. Pupils are reactive to light and accommodation. NECK: No JVP. No LAD. No thyromegaly. LUNGS: Clear to auscultation. CARDIAC: Regular rate and rhythm. S1-S2. No murmur. No rub. ABDOMEN: Soft, nontender, and nondistended. EXTREMITIES: No edema. No clubbing. No cyanosis. Reema De Leon MD Jun 28, 2020 09:55
[2020-06-28 12:00] VITALS: BP 124/62
--- NOTE | 2020-06-28 13:12 | NUR ---
NURSE NOTES: Clarifying accucheck schedule and novolog schedule with dr Daugherty, awaiting response. For transfer to [facility] once bed available.
--- NOTE | 2020-06-28 13:30 | Progress Note ---
DATE: 06/28/2020 SUBJECTIVE: This is an elderly male, currently more awake. NG tube in place and comfortable, in no distress. OBJECTIVE: VITAL SIGNS: Blood pressure is 144/73, pulse 74. No fever. CHEST: Bilateral decreased breath sounds. CARDIOVASCULAR: Regular rhythm. ABDOMEN: Soft. EXTREMITIES: CCE. LABORATORY DATA: His BUN 11, creatinine 1. ASSESSMENT: 1. Acute renal failure. 2. Metabolic encephalopathy. 3. Sepsis. 4. Dysphagia. 5. Encephalopathy. PLAN: 1. We will continue NPO, NG tube suction. Continue current medical treatment, swallow evaluation and discuss whether transfer to Med/Surg is discussed with the charge nurse. Genaro Daugherty M.D. DR: RHONDA JOB#: [id number] CC:
--- NOTE | 2020-06-28 13:43 | Consultation ---
Consult Note Consult Note HISTORY OF PRESENT ILLNESS: The patient is a 70-year-old male with past medical history significant for history of dementia, hypertension, COPD, diabetes, dysphagia and GERD, who was transferred to [facility] for evaluation of abnormal labs. The patient upon admission found to have a BUN of 58, creatinine 2.9. Upon evaluation in the ER, the patient was found to be having temperature of 97, pulse rate 72, respiratory rate of 27. The patient was evaluated in the ER, found to have an acute renal failure, was admitted on monitored bed. Currently, he is saturating wel on RA. I was asked to consult for his respiratory condition. PAST MEDICAL HISTORY: Including history of dementia, history of COPD, and history of hypertension, history of dyslipidemia, and history of diabetes. PAST SURGICAL HISTORY: None. ALLERGIES: No known drug allergies. MEDICATIONS: List was reviewed. SOCIAL HISTORY: There is no current history of tobacco, alcohol, or drug use. FAMILY HISTORY: Noncontributory. REVIEW OF SYSTEMS: Unable to obtain. PHYSICAL EXAMINATION: VITAL SIGNS: The patient has temperature of 97, blood pressure 122/55, pulse rate of 76. HEENT: Extraocular movement intact. Pupils are reactive to light and accommodation. NECK: No JVP. No LAD. No thyromegaly. LUNGS: Clear to auscultation. CARDIAC: Regular rate and rhythm. S1-S2. No murmur. No rub. ABDOMEN: Soft, nontender, and nondistended. EXTREMITIES: No edema. No clubbing. No cyanosis. LABORATORY DATA: The patient has sodium 137, potassium 4.4, chloride 104, bicarb 22, BUN of 58, creatinine of 2.9. AST of 15, ALT of 25, and alkaline phosphatase was 138. CBC revealed WBC count of 11, hemoglobin of 13, hematocrit 40, platelet count of 307,000. UA revealed specific gravity of 1.015, protein 2+, wbc of 0 to 2, rbc of 0 to 2. ASSESSMENT: 1. Acute renal failure, ATN due to unstable hemodynamics. Rule out obstructive uropathy. Rule out hypertensive nephrosclerosis. 2. Hypertension, which at this point blood pressure is under well control. 3. Altered mental status. 4. COPD; stable PLAN: Will order oxygen prn and pulmonary hygiene Will follow Ramonita Richardson Omar Syed MD Jun 28, 2020 13:43
[2020-06-28] MEDS: Acetaminophen 650mg/20.3ml NG PRN (14:02)
[2020-06-28] MEDS ORDERED: traMADol 50mg tab NG PRN (15:00)
--- NOTE | 2020-06-28 15:30 | NUR ---
NURSE NOTES: Received patient into room 402 bed 2.patient alert to name,respirations unlabored.patient has N/G tube Glucerna at 30cc/hr,from report the goal rate is 65cc/hr .N/G tube checked for patency through auscultation,no residual noted . IV fluids infusing as ordered.Patient has bilateral wrist restraints in place.fingers warm to touch .Good skin color to hands.HOB is elevated.Skin is intact.Bed alarm on.Call light within reach.
[2020-06-28] MEDS: NovoLOG Insulin Flexpen SUBQ SCH ×2 (16:30→21:00)
[2020-06-28] MEDS ORDERED: NovoLOG Insulin Flexpen SUBQ SCH (16:30)
[2020-06-28] MEDS ORDERED: 1/2 NS 1000ml IV ONE (16:35)
--- NOTE | 2020-06-28 16:36 | NUR ---
CASE MANAGEMENT:REVIEW 06/28/20 SI: ACUTE RENAL FAILURE. ENCEPHALOPATHY. DYSPHAGIA 100.0 62 20 124/62 100% ON RA IS: ALLOPURINOL NG QD COZAAR NG QD SYNTHROID NG QAM HEPARIN SQ Q8HRS COREG NG Q12 RISPERDAL GT QHS IV ROCEPHIN Q24 IVF@100/HR : TELEMETRY UNIT DCP: FROM [facility] PLAN: NG TUBE REPEAT SWALLOW EVAL WHEN MORE AWAKE ?
[2020-06-28 16:40] VITALS: BP 130/79
[2020-06-28] MEDS ORDERED: cefTRIAXone 1 GM in NS 55 ML IVPB SCH (18:00)
[2020-06-28] MEDS ORDERED: Acetaminophen 650mg/20.3ml NG PRN (18:00)
--- NOTE | 2020-06-28 18:03 | NUR ---
NURSE NOTES: Patient had a large soft Bowel movement,skin care given,bed alarm on,call light within reach.
--- NOTE | 2020-06-28 19:42 | NUR ---
HAND-OFF: Report given to Parrish HOLDEN.Aware of fall risk,aspiration precaution..
[2020-06-28 20:00] VITALS: BP 144/92
--- NOTE | 2020-06-28 20:00 | NUR ---
NURSE NOTES: NG tube marker at 53. No endorsement from AM nurse on previous NG tube marker.
[2020-06-28] MEDS: Atorvastatin 20mg tab NG SCH (20:08)
[2020-06-29] VITALS: BP 140/84
--- NOTE | 2020-06-29 00:15 | Consultation ---
DATE OF CONSULTATION: 06/28/2020 CONSULTING PHYSICIAN: Yong Montes De Oca MD. HISTORY OF PRESENT ILLNESS: This is a 70-year-old male with a history of schizoaffective disorder who was admitted to the hospital due to acute renal failure and presented with encephalopathy. Patient is presenting with anxiety, agitation. Patient is having more confusion and has poor p.o. intake. Patient is status post COVID pneumonia and after having COVID, he has been progressively declined. PAST PSYCHIATRIC HISTORY: Schizoaffective disorder, bipolar disorder. PAST MEDICAL HISTORY: Hypertension, hyperlipidemia, hypothyroidism, GERD. ALLERGIES: No known drug allergies. SUBSTANCE ABUSE HISTORY: No known history of illicit drug use or alcohol. MENTAL STATUS EXAMINATION: Patient is having waxing waning consciousness, confused, disoriented. Mood is agitated at times. Affect is flat. Thought process, there is a paucity of thought content. Thought content, no suicidal or homicidal ideation. Cognition is impaired. Insight and judgment is impaired. ASSESSMENT: Mul[place]ugh I Acute encephalopathy. Schizoaffective disorder. [place] II Deferred. [place]ugh III As above. [place]ugh IV Low. [place]ugh V 20. PLAN: 1. Risperidone p.r.n. 2. Provide the patient with reality orientation and supportive psychotherapy. Yong Montes De Oca M.D. DR: BORIS JOB#: [id number] CC:
--- NOTE | 2020-06-29 03:29 | NUR ---
NURSE NOTES: New IV access inserted. 22 gauge on left wrist.
[2020-06-29 04:00] VITALS: BP 112/80
[2020-06-29] MEDS: Heparin 5000 units/ml inj SUBQ SCH ×3 (05:25→21:21)
[2020-06-29] MEDS: NovoLOG Insulin Flexpen SUBQ SCH ×4 (05:42→20:53)
[2020-06-29] MEDS: Levothyroxine 25mcg tab NG SCH (05:55)
[2020-06-29] MEDS: Repaglinide 1mg tab NG SCH ×4 (05:55→20:53)
--- NOTE | 2020-06-29 07:28 | NUR ---
HAND-OFF: Report given to ADINA Ríos.
--- NOTE | 2020-06-29 08:00 | NUR ---
NURSE NOTES: Patient eyes open,alert to name.Respirations unlabored.N?G tube in place .Placement heard through auscultation.Abdomen is soft,no residual noted.N/G tube feedings ongoing as ordered.IV fluids infusing as ordered.patient has on bilateral wrist restraints will provide skin care and ROM.HOB is elevated.Bed alarm on,call light within reach.
[2020-06-29 08:15] VITALS: BP 148/81
--- NOTE | 2020-06-29 08:17 | Pulmonology Progress Note ---
Subjective ROS Limited/Unobtainable: Yes Interval Events: None new Constitutional: Reports: no symptoms HEENT: Repors: no symptoms Respiratory: Reports: no symptoms Cardiovascular: Reports: no symptoms Gastrointestinal/Abdominal: Reports: no symptoms Genitourinary: Reports: no symptoms Allergies: Coded Allergies: No Known Allergies (Unverified , 06/24/20) Objective Last 24 Hour Vital Signs Date Time Temp Pulse Resp B/P (MAP) Pulse Ox O2 Delivery O2 Flow Rate FiO2 06/29/20 04:00 98.6 67 20 112/80 (91) 96 06/29/20 00:00 98.3 67 20 140/84 (102) 96 06/28/20 21:51 Room Air 06/28/20 20:08 68 130/79 06/28/20 20:00 98.4 70 20 144/92 (109) 100 06/28/20 16:40 97.5 68 20 130/79 (96) 100 06/28/20 12:00 100.0 67 20 124/62 (82) 100 06/28/20 12:00 62 06/28/20 09:03 144/73 06/28/20 09:03 74 144/73 06/28/20 09:00 Room Air Intake and Output 06/28/20 06/29/20 19:00 07:00 Intake Total 370 ml Balance 370 ml Intake Free Water 50 ml IV Total 200 ml Tube Feeding 120 ml # Voids 3 # Bowel Movements 1 1 General Appearance: no acute distress HEENT: normocephalic Respiratory: chest wall non-tender Cardiovascular: normal peripheral pulses Abdomen: soft, non tender Laboratory Tests 06/28/20 18:33: POC Whole Blood Glucose [Pending] Current Medications Medications (Trade) Dose Ordered Sig/Félix Route PRN Reason Start Time Stop Time Status Last Admin Dose Admin Acetaminophen (Tylenol) 650 mg Q4H PRN NG Tem>100.5 06/28/20 18:00 07/27/20 17:59 Allopurinol (allopurinoL) 300 mg DAILY NG 06/29/20 09:00 07/27/20 08:59 Atorvastatin Calcium (Lipitor) 40 mg BEDTIME NG 06/28/20 21:00 09/25/20 20:59 06/28/20 20:08 Carvedilol (Coreg) 12.5 mg EVERY 12 HOURS NG 06/28/20 21:00 07/27/20 08:59 06/28/20 20:08 Ceftriaxone Sodium 1 gm/ Sodium Chloride 55 ml @ 110 mls/hr Q24H IVPB 06/28/20 18:00 07/01/20 17:59 06/28/20 18:22 Dextrose (Dextrose 50%) 25 ml Q30M PRN IV Hypoglycemia 06/28/20 15:15 09/26/20 12:44 Dextrose (Dextrose 50%) 50 ml Q30M PRN IV Hypoglycemia 06/28/20 15:15 09/26/20 12:44 Gabapentin (Neurontin) 300 mg THREE TIMES A DAY NG 06/28/20 18:00 07/27/20 12:59 06/28/20 18:25 Heparin Sodium (Porcine) (Heparin 5000 units/ml) 5,000 units EVERY 8 HOURS SUBQ 06/28/20 22:00 08/08/20 21:59 06/29/20 05:25 Insulin Aspart (NovoLOG) BEFORE MEALS AND HS SUBQ 06/28/20 16:30 09/26/20 16:29 Levothyroxine Sodium (Synthroid) 25 mcg 0630 NG 06/29/20 06:30 07/27/20 08:59 06/29/20 05:55 Losartan Potassium (Cozaar) 50 mg DAILY NG 06/29/20 09:00 07/27/20 08:59 Metformin HCl (Glucophage) 1,000 mg BID NG 06/28/20 18:00 07/27/20 09:29 06/28/20 18:23 Repaglinide (Prandin) 1 mg AC+HS NG 06/28/20 16:30 07/27/20 11:29 06/29/20 05:55 Risperidone (RisperDAL) 1 mg BEDTIME ORAL 06/28/20 21:00 08/12/20 20:59 06/28/20 20:08 Risperidone (RisperDAL) 1 mg BEDTIME PRN ORAL agitation 06/28/20 21:00 08/12/20 14:29 Sodium Chloride 1,000 ml @ 100 mls/hr Q10H IV 06/28/20 15:00 07/24/20 16:14 06/28/20 15:58 Tramadol HCl (Ultram) 50 mg Q6H PRN NG For Pain 06/28/20 15:00 07/04/20 08:59 Assessment/Plan Assessment/Plan ASSESSMENT: 1. Acute renal failure. 2. Hypertension, which at this point blood pressure is under well control. 3. Altered mental status. 4. COPD; stable PLAN: Will continue oxygen prn and pulmonary hygiene Will follow Ramonita Richardson Omar Syed MD Jun 29, 2020 08:17
[2020-06-29] MEDS: Carvedilol 12.5mg tab NG SCH ×2 (08:21→20:01)
[2020-06-29] MEDS: Losartan 50mg tab NG SCH (08:22)
[2020-06-29] MEDS: metFORMIN 500mg tab NG SCH ×2 (08:22→18:34)
[2020-06-29] MEDS: Gabapentin 300 MG/6 ML Soln NG SCH ×3 (08:23→18:00)
--- NOTE | 2020-06-29 09:51 | Nephrology Progress Note ---
Assessment/Plan Assessment 1.CHAN resolved 2.CKD 3.HTN Plan Plan monitoring renal function closely avoid NSAID replace electrolyte as need it continue feeding Subjective Subjective pt continue to be confused Objective Objective Last 24 Hour Vital Signs Date Time Temp Pulse Resp B/P (MAP) Pulse Ox O2 Delivery O2 Flow Rate FiO2 06/29/20 08:22 148/81 06/29/20 08:21 67 148/81 06/29/20 08:15 98.4 67 19 148/81 (103) 100 06/29/20 04:00 98.6 67 20 112/80 (91) 96 06/29/20 00:00 98.3 67 20 140/84 (102) 96 06/28/20 21:51 Room Air 06/28/20 20:08 68 130/79 06/28/20 20:00 98.4 70 20 144/92 (109) 100 06/28/20 16:40 97.5 68 20 130/79 (96) 100 06/28/20 12:00 100.0 67 20 124/62 (82) 100 06/28/20 12:00 62 Intake and Output 06/28/20 06/29/20 19:00 07:00 Intake Total 370 ml Balance 370 ml Intake Free Water 50 ml IV Total 200 ml Tube Feeding 120 ml # Voids 3 # Bowel Movements 1 1 Laboratory Tests 06/28/20 18:33: POC Whole Blood Glucose [Pending] Height (Feet): 5 Height (Inches): 6.00 Weight (Pounds): 200 Objective HEENT: Extraocular movement intact. Pupils are reactive to light and accommodation. NECK: No JVP. No LAD. No thyromegaly. LUNGS: Clear to auscultation. CARDIAC: Regular rate and rhythm. S1-S2. No murmur. No rub. ABDOMEN: Soft, nontender, and nondistended. EXTREMITIES: No edema. No clubbing. No cyanosis. Reema De Leon MD Jun 29, 2020 09:51
[2020-06-29 10:42] LABS: ANION GAP 9 mmol/L (5-15); BLOOD UREA NITROGEN 7 mg/dL (7-18); CALCIUM 9.8 MG/DL (8.5-10.1); CARBON DIOXIDE 23 MMOL/L (21-32); CHLORIDE 107 MMOL/L (98-107); CREATININE 0.9 MG/DL (0.55-1.30); POTASSIUM 3.5 MMOL/L (3.5-5.1); SODIUM 139 MMOL/L (136-145)
[2020-06-29 12:00] VITALS: BP 149/77
[2020-06-29 16:00] VITALS: BP 143/69
--- NOTE | 2020-06-29 16:00 | Nephrology Progress Note ---
Assessment/Plan Assessment 1.CHAN resolved 2.CKD 3.HTN Plan Plan monitoring renal function closely avoid NSAID replace electrolyte as need it continue feeding Subjective Subjective pt continue to be confused Objective Objective Last 24 Hour Vital Signs Date Time Temp Pulse Resp B/P (MAP) Pulse Ox O2 Delivery O2 Flow Rate FiO2 06/29/20 12:00 97.9 72 20 149/77 (101) 100 06/29/20 09:00 Room Air 06/29/20 08:22 148/81 06/29/20 08:21 67 148/81 06/29/20 08:15 98.4 67 19 148/81 (103) 100 06/29/20 04:00 98.6 67 20 112/80 (91) 96 06/29/20 00:00 98.3 67 20 140/84 (102) 96 06/28/20 21:51 Room Air 06/28/20 20:08 68 130/79 06/28/20 20:00 98.4 70 20 144/92 (109) 100 06/28/20 16:40 97.5 68 20 130/79 (96) 100 Intake and Output 06/28/20 06/29/20 19:00 07:00 Intake Total 370 ml Balance 370 ml Intake Free Water 50 ml IV Total 200 ml Tube Feeding 120 ml # Voids 3 # Bowel Movements 1 1 Laboratory Tests 06/28/20 18:33: POC Whole Blood Glucose [Pending] 06/29/20 10:20: Sodium Level 139, Potassium Level 3.5, Chloride Level 107, Carbon Dioxide Level 23, Anion Gap 9, Blood Urea Nitrogen 7, Creatinine 0.9, Estimat Glomerular Filtration Rate > 60, Glucose Level 134H, Calcium Level 9.8 Height (Feet): 5 Height (Inches): 6.00 Weight (Pounds): 200 Objective HEENT: Extraocular movement intact. Pupils are reactive to light and accommodation. NECK: No JVP. No LAD. No thyromegaly. LUNGS: Clear to auscultation. CARDIAC: Regular rate and rhythm. S1-S2. No murmur. No rub. ABDOMEN: Soft, nontender, and nondistended. EXTREMITIES: No edema. No clubbing. No cyanosis. Reema De Leon MD Jun 29, 2020 16:00
--- NOTE | 2020-06-29 17:16 | NUR ---
[employer] MEDIA PROGRAM DIRECTOR NOTE [facility] EVAL ORDER NOTED S/W [facility]TE[facility] AT [facility], PATIENT DOES NOT MEET CRITERIA. MD NOTIFIED AND INFORMED.
[2020-06-29] MEDS: Bactrim Susp 20ml NG SCH (17:21)
--- NOTE | 2020-06-29 17:30 | NUR ---
NURSE NOTES: N/G tube discontinued as ordered,patient to start on Puree diet.
--- NOTE | 2020-06-29 17:53 | NUR ---
ST SWALLOW RE/EVALUATION (full report found in care activity section) PATIENT REFERRED TO ST BY DR. ASIF. CHART REVIEWED. PATIENT CLEARED FOR ST INTERVENTION BY RN . PATIENT RECEIVED ALERT, AWAKE, COOPERATIVE. DYSPHAGIA RISK FACTORS FOR THIS 70 Y.O. MALE INCLUDE: ACUTE: Acute renal failure, AMS, ongoing poor PO for the last few days, DM, metabolic encephalopathy. H/O: COVID pneumonia, hypertension, hyperlipidemia, comorbid obesity, hypothyroidism, GERD, dysphagia, failure to thrive, chronic back pain, schizoaffective disorder, COPD with acute exacerbation, PNA, ankylosing spondylitis lumbar region, idiopathic peripheral autonomic neuropathy, oropharyngeal dysphagia, acute embolism and thrombosis of unspec bilateral deep veins LE, gout, anxiety disorder, spinal stenosis. RELEVANT MEDS: Ativan (Agitation). PLOF: At SNF Patient consumes Puree and [place] Thick Liquids diet. PLOST: Full code, no wishes for alternative nutrition/hydration. INITIAL IMPRESSIONS: S/W OF MILD OROPHARYNGEAL DYSPHAGIA WITH MILDLY INCREASED ORAL PREP AND OROPHARYNGEAL TRANSIT TIMES. LINGUAL/LABIAL/MANDIBULAR MUSCULATURE PRESENTED GROSSLY INTACT FOR ROM/STRENGTH, BUT MILDLY IMPAIRED RELATIVE TO COORDINATION. VOCAL QUALITY CLEAR, PRE AND POST P.O. TRIALS. ADEQUATE IN VOLUME FOR QUIET SETTING PATIENT GIVEN NECTAR THICK LIQUIDS IN 5ML AMOUNTS VIA SPOON. GOOD LIP CLOSURE AND FAIR HYOLARYNGEAL EXCURSION BUT NO OVERT S/S OVERT ASPIRATION. ON THE OTHER HAND, WITH 5 ML AMOUNTS OF THIN LIQUID, PATIENT PRESENTED WITH COUGH IMMEDIATELY POST SWALLOW. PATIENT ENDENTULOUS ESSENTIALLY (ONE LOWER LATERAL INCISOR NOTED). MASTICATION OF SOLIDS WOULD BE DOUBTFUL, NOT ATTEMPTED WITH THESE TRIALS. WITH 5ML AMOUNTS OF PUREE, PATIENT DEMONSTRATED MILD DELAYS IN ORAL PREP/ORAL TRANSIT AND IN INITIATION OF PHARYNGEAL PHASE OF SWALLOW. NEGLIGIBLE RESIDUE NOTED ON LINGUAL SURFACE POST SWALLOW. THIS WAS CLEARED WITH LIQUID WASH/NTL. RECOMMENDATIONS: 1. PATIENT SAFE TO RESUME P.O. WITH MODIFIED TEXTURE DIET. DR. ASIF PRESENT, HE ENTERED ORDER IMMEDIATELY. 2. MEALTIME PROTOCOL TO MINIMIZE RISK OF ASPIRATION 3. CRUSH CRUSHABLE MEDS/PRESENT IN PUREE 4. TOTAL ASSIST WITH MEALS 5. MODIFIED BARIUM SWALLOW SOON CAN BE SCHEDULED.. 6. ST TO FOLLOW FOR DYSPHAGIA MANAGEMENT/TX. DISCUSSED FINDINGS/RECOMMENDATIONS WITH DR. ASIF AND RN. Thank you for this referral! SHRIMPING [employer]AT CAPTAIN [phone]
--- NOTE | 2020-06-29 18:00 | NUR ---
CHARGE NURSE NOTE: Pt passed swallow eval. He is on pureed diet (1:1 feeder).ENDOSCOPY NURSE and CN noticed that pt is not able to swallow his food, he is holding his food in the mouth. notified. He said - hold his food today, feed him tomorrow. Primary nurse ADINA Ríos aware.
--- NOTE | 2020-06-29 18:50 | NUR ---
NURSE NOTES: Per speech evaluation patient can start on a puree diet patient given a teaspoon of puree,patient hold food in mouth will notify DR Daugherty.
--- NOTE | 2020-06-29 19:22 | NUR ---
HAND-OFF: Report given to Parrish HOLDEN,aware of fall risk,aspiration precaution..
--- NOTE | 2020-06-29 19:35 | Psych Consult Progress Note ---
Psychiatry Progress Note Psychiatry Progress Note Subjective the pt is more alert and still needs bilat sot restraints. the pt benefits. Medications Current Medications Medications (Trade) Dose Ordered Sig/Félix Route PRN Reason Start Time Stop Time Status Last Admin Dose Admin Acetaminophen (Tylenol) 650 mg Q4H PRN NG Tem>100.5 06/28/20 18:00 07/27/20 17:59 Allopurinol (allopurinoL) 300 mg DAILY NG 06/29/20 09:00 07/27/20 08:59 06/29/20 08:25 Atorvastatin Calcium (Lipitor) 40 mg BEDTIME NG 06/28/20 21:00 09/25/20 20:59 06/28/20 20:08 Carvedilol (Coreg) 12.5 mg EVERY 12 HOURS NG 06/28/20 21:00 07/27/20 08:59 06/29/20 08:21 Dextrose (Dextrose 50%) 25 ml Q30M PRN IV Hypoglycemia 06/28/20 15:15 09/26/20 12:44 Dextrose (Dextrose 50%) 50 ml Q30M PRN IV Hypoglycemia 06/28/20 15:15 09/26/20 12:44 Gabapentin (Neurontin) 300 mg THREE TIMES A DAY NG 06/28/20 18:00 07/27/20 12:59 06/29/20 13:51 Heparin Sodium (Porcine) (Heparin 5000 units/ml) 5,000 units EVERY 8 HOURS SUBQ 06/28/20 22:00 08/08/20 21:59 06/29/20 13:51 Insulin Aspart (NovoLOG) BEFORE MEALS AND HS SUBQ 06/28/20 16:30 09/26/20 16:29 Levothyroxine Sodium (Synthroid) 25 mcg 0630 NG 06/29/20 06:30 07/27/20 08:59 06/29/20 05:55 Losartan Potassium (Cozaar) 50 mg DAILY NG 06/29/20 09:00 07/27/20 08:59 06/29/20 08:22 Metformin HCl (Glucophage) 1,000 mg BID NG 06/28/20 18:00 07/27/20 09:29 06/29/20 18:34 Repaglinide (Prandin) 1 mg AC+HS NG 06/28/20 16:30 07/27/20 11:29 06/29/20 17:16 Risperidone (RisperDAL) 1 mg BEDTIME ORAL 06/28/20 21:00 08/12/20 20:59 06/28/20 20:08 Risperidone (RisperDAL) 1 mg BEDTIME PRN ORAL agitation 06/28/20 21:00 08/12/20 14:29 Sodium Chloride 1,000 ml @ 100 mls/hr Q10H IV 06/28/20 15:00 07/24/20 16:14 06/29/20 11:58 Tramadol HCl (Ultram) 50 mg Q6H PRN NG For Pain 06/28/20 15:00 07/04/20 08:59 Trimethoprim/ Sulfamethoxazole (Bactrim-DS) 20 ml EVERY 12 HOURS NG 06/29/20 17:00 07/06/20 16:59 06/29/20 17:21 Allergies: Coded Allergies: No Known Allergies (Unverified , 06/24/20) Objective Data Height (Feet): 5 Height (Inches): 6.00 Weight (Pounds): 200 General Appearance: WD/WN, no apparent distress, alert Additional Comments: waxing waning consciousness, confused, disoriented. Mood is agitated at times. Affect is flat. Thought process, there is a paucity of thought content. Thought content, no suicidal or homicidal ideation. Cognition is impaired. Insight and judgment is impaired. ASSESSMENT: [place] I Acute encephalopathy. Schizoaffective disorder. [place] II Deferred. [place] III As above. [place] IV Low. [place] V 20. PLAN: 1. Risperidone p.r.n. 2. Provide the patient with reality orientation and supportive psychotherapy. Yong Montes De Oca MD Jun 29, 2020 19:35
[2020-06-29 20:00] VITALS: BP 137/81
--- NOTE | 2020-06-29 20:00 | NUR ---
NURSE NOTES: Patient still unable to swallow thickened liquid. Patient holds the liquid in mouth until it falls out. Charge nurse aware.
[2020-06-29] MEDS: Atorvastatin 20mg tab NG SCH (20:01)
[2020-06-30] VITALS: BP 134/83
--- NOTE | 2020-06-30 03:00 | Progress Note ---
DATE: 06/29/2020 SUBJECTIVE: This is a 70-year-old male currently in the bed, comfortable, more awake and alert. PHYSICAL EXAMINATION: VITAL SIGNS: Blood pressure 149/77, pulse 72. No fever. SKIN: He has good skin turgor.. CHEST: Bilaterally decreased breath sounds. CARDIOVASCULAR: Regular rhythm. ABDOMEN: Soft. Positive bowel sounds. EXTREMITIES: No edema. LABORATORY DATA: Sodium 139, potassium 3.5, BUN 7, creatinine 0.9, and glucose 134. His microbiology, urine culture showing MRSA. Urinalysis showed VRE culture Enterococcus. ASSESSMENT: 1. Sepsis. 2. Urinary tract infection. 3. Dysphagia. 4. Acute renal failure. 5. Metabolic encephalopathy. PLAN: Continue current treatment. Continue Bactrim DS. Continue losartan, levothyroxine, heparin, and carvedilol. Waiting for swallow evaluation and possible . We will start feeding. Continue supportive treatment. Genaro Daugherty M.D. DR: Roshan JOB#: [id number] CC:
[2020-06-30 04:00] VITALS: BP 140/70
[2020-06-30] MEDS: Heparin 5000 units/ml inj SUBQ SCH ×3 (05:25→22:14)
[2020-06-30] MEDS: Levothyroxine 25mcg tab NG SCH (05:41)
[2020-06-30] MEDS: Repaglinide 1mg tab NG SCH ×4 (05:41→22:13)
[2020-06-30] MEDS: NovoLOG Insulin Flexpen SUBQ SCH ×4 (05:55→21:00)
--- NOTE | 2020-06-30 07:05 | NUR ---
HAND-OFF: Report given to ADINA Matthew.
[2020-06-30 08:00] VITALS: BP 135/55
[2020-06-30] MEDS: Bactrim Susp 20ml NG SCH ×2 (08:13→22:13)
[2020-06-30] MEDS: Gabapentin 300 MG/6 ML Soln NG SCH ×3 (08:13→17:08)
[2020-06-30] MEDS: metFORMIN 500mg tab NG SCH ×2 (08:14→17:08)
[2020-06-30] MEDS: Carvedilol 12.5mg tab NG SCH ×2 (08:14→22:12)
[2020-06-30] MEDS: Losartan 50mg tab NG SCH (08:14)
--- NOTE | 2020-06-30 09:03 | Pulmonology Progress Note ---
Subjective ROS Limited/Unobtainable: Yes Interval Events: None new Constitutional: Reports: no symptoms HEENT: Repors: no symptoms Respiratory: Reports: no symptoms Cardiovascular: Reports: no symptoms Gastrointestinal/Abdominal: Reports: no symptoms Genitourinary: Reports: no symptoms Allergies: Coded Allergies: No Known Allergies (Unverified , 06/24/20) Objective Last 24 Hour Vital Signs Date Time Temp Pulse Resp B/P (MAP) Pulse Ox O2 Delivery O2 Flow Rate FiO2 06/30/20 08:14 135/55 06/30/20 08:14 66 135/55 06/30/20 08:00 98.1 69 21 135/55 (81) 100 06/30/20 04:00 97.1 69 17 140/70 (93) 100 06/30/20 00:00 97.9 81 17 134/83 (100) 100 06/29/20 21:39 Room Air 06/29/20 20:01 82 143/69 06/29/20 20:00 97.7 75 18 137/81 (99) 100 06/29/20 16:00 98.2 82 20 143/69 (93) 100 06/29/20 12:00 97.9 72 20 149/77 (101) 100 Intake and Output 06/29/20 06/30/20 19:00 07:00 Intake Total 1805 ml Output Total 1400 ml Balance 1805 ml -1400 ml Intake Free Water 30 ml IV Total 1300 ml Tube Feeding 475 ml Output Urine Total 1400 ml # Voids 1 # Bowel Movements 1 1 General Appearance: no acute distress HEENT: normocephalic Respiratory: chest wall non-tender Cardiovascular: normal peripheral pulses Abdomen: soft, non tender Laboratory Tests 06/29/20 10:20: Sodium Level 139, Potassium Level 3.5, Chloride Level 107, Carbon Dioxide Level 23, Anion Gap 9, Blood Urea Nitrogen 7, Creatinine 0.9, Estimat Glomerular Filtration Rate > 60, Glucose Level 134H, Calcium Level 9.8 Current Medications Medications (Trade) Dose Ordered Sig/Félix Route PRN Reason Start Time Stop Time Status Last Admin Dose Admin Acetaminophen (Tylenol) 650 mg Q4H PRN NG Tem>100.5 06/28/20 18:00 07/27/20 17:59 Allopurinol (allopurinoL) 300 mg DAILY NG 06/29/20 09:00 07/27/20 08:59 06/30/20 08:14 Atorvastatin Calcium (Lipitor) 40 mg BEDTIME NG 06/28/20 21:00 09/25/20 20:59 06/29/20 20:01 Carvedilol (Coreg) 12.5 mg EVERY 12 HOURS NG 06/28/20 21:00 07/27/20 08:59 06/30/20 08:14 Dextrose (Dextrose 50%) 25 ml Q30M PRN IV Hypoglycemia 06/28/20 15:15 09/26/20 12:44 Dextrose (Dextrose 50%) 50 ml Q30M PRN IV Hypoglycemia 06/28/20 15:15 09/26/20 12:44 Gabapentin (Neurontin) 300 mg THREE TIMES A DAY NG 06/28/20 18:00 07/27/20 12:59 06/30/20 08:13 Heparin Sodium (Porcine) (Heparin 5000 units/ml) 5,000 units EVERY 8 HOURS SUBQ 06/28/20 22:00 08/08/20 21:59 06/30/20 05:25 Insulin Aspart (NovoLOG) BEFORE MEALS AND HS SUBQ 06/28/20 16:30 09/26/20 16:29 Levothyroxine Sodium (Synthroid) 25 mcg 0630 NG 06/29/20 06:30 07/27/20 08:59 06/29/20 05:55 Losartan Potassium (Cozaar) 50 mg DAILY NG 06/29/20 09:00 07/27/20 08:59 06/30/20 08:14 Metformin HCl (Glucophage) 1,000 mg BID NG 06/28/20 18:00 07/27/20 09:29 06/30/20 08:14 Repaglinide (Prandin) 1 mg AC+HS NG 06/28/20 16:30 07/27/20 11:29 06/29/20 17:16 Risperidone (RisperDAL) 1 mg BEDTIME ORAL 06/28/20 21:00 08/12/20 20:59 06/29/20 20:01 Risperidone (RisperDAL) 1 mg BEDTIME PRN ORAL agitation 06/28/20 21:00 08/12/20 14:29 Sodium Chloride 1,000 ml @ 100 mls/hr Q10H IV 06/28/20 15:00 07/24/20 16:14 06/30/20 07:18 Tramadol HCl (Ultram) 50 mg Q6H PRN NG For Pain 06/28/20 15:00 07/04/20 08:59 Trimethoprim/ Sulfamethoxazole (Bactrim-DS) 20 ml EVERY 12 HOURS NG 06/29/20 17:00 07/06/20 16:59 06/30/20 08:13 Assessment/Plan Assessment/Plan ASSESSMENT: 1. Acute renal failure. Improved 2. Hypertension 3. Altered mental status. 4. COPD; stable PLAN: Will continue oxygen prn and pulmonary hygiene Will follow Saturating well on RA Ramonita Richardson Omar Syed MD Jun 30, 2020 09:03
[2020-06-30 12:00] VITALS: BP 136/66
[2020-06-30] MEDS ORDERED: Varibar Honey 250ml MC PRN (14:45)
[2020-06-30] MEDS ORDERED: Varibar Nectar 240ml MC PRN (14:45)
[2020-06-30] MEDS ORDERED: Varibar Pudding 230ml MC PRN (14:45)
[2020-06-30] MEDS ORDERED: Varibar Thin Liquid powder 148gm MC PRN (14:45)
--- NOTE | 2020-06-30 14:53 | Nephrology Progress Note ---
Assessment/Plan Assessment 1.CHAN resolved 2.CKD 3.HTN Plan Plan monitoring renal function closely avoid NSAID replace electrolyte as need it continue feeding Subjective ROS Limited/Unobtainable: Yes Subjective pt continue to be confused Objective Objective Last 24 Hour Vital Signs Date Time Temp Pulse Resp B/P (MAP) Pulse Ox O2 Delivery O2 Flow Rate FiO2 06/30/20 12:00 97.3 61 21 136/66 (89) 100 06/30/20 09:00 Room Air 06/30/20 08:14 135/55 06/30/20 08:14 66 135/55 06/30/20 08:00 98.1 69 21 135/55 (81) 100 06/30/20 04:00 97.1 69 17 140/70 (93) 100 06/30/20 00:00 97.9 81 17 134/83 (100) 100 06/29/20 21:39 Room Air 06/29/20 20:01 82 143/69 06/29/20 20:00 97.7 75 18 137/81 (99) 100 06/29/20 16:00 98.2 82 20 143/69 (93) 100 Intake and Output 06/29/20 06/30/20 19:00 07:00 Intake Total 1805 ml Output Total 1400 ml Balance 1805 ml -1400 ml Intake Free Water 30 ml IV Total 1300 ml Tube Feeding 475 ml Output Urine Total 1400 ml # Voids 1 # Bowel Movements 1 1 Height (Feet): 5 Height (Inches): 6.00 Weight (Pounds): 198 Objective HEENT: Extraocular movement intact. Pupils are reactive to light and accommodation. NECK: No JVP. No LAD. No thyromegaly. LUNGS: Clear to auscultation. CARDIAC: Regular rate and rhythm. S1-S2. No murmur. No rub. ABDOMEN: Soft, nontender, and nondistended. EXTREMITIES: No edema. No clubbing. No cyanosis. Reema De Leon MD Jun 30, 2020 14:53
--- NOTE | 2020-06-30 14:56 | NUR ---
ST MODIFIED BARIUM SWALLOW STUDY. PATIENT SEEN FOR MODIFIED BARIUM SWALLOW STUDY. Patient completed PO trials of Varibar in various consistencies to further evaluate swallow physiology. Examination completed with Patient on room air, VSS for the duration of the session; Patient tolerated the examination well. A [place] therapeutic recreation director was used via telephone to minimize language barrier. Examination was very limited due to Pt positioning, unable to maintain adequate upright position for complete visualization of pharynx despite multiple attempts to re-position the Patient and with verbal and tactile cues. INITIAL IMPRESSIONS: s/s of at least Moderate oropharyngeal Dysphagia, Pt's swallowing function primarily impacted by significant cognitive deficits (talks with food in mouth, unable to consistently follow verbal commands, easily distracted) and instances of bolus holding, prolonged oral preparation and oropharyngeal transit times, delayed swallow, compounded by s/s of sensorimotor deficits. Unable to definitively r/o aspiration at this time due to limitations in Pt positioning. THIN LIQUIDS: -TSP: Unable to r/o silent aspiration. Pt noted to bolus hold and to talk with thin liquid barium in oral cavity prior to swallowing. Pt noted with prolonged A-P transit to BOT, pharyngeal swallow initiated at the level of the posterior laryngeal surface of epiglottis. Trace pharyngeal residuals with no attempt to clear, suspect some level of reduced pharyngeal sensations. No significant overt aspiration signs or symptoms. NECTAR THICK LIQUIDS: -TSP/CUP: Unable to r/o silent aspiration. Pt appearing with improved bolus control with thicker liquids, A-P transit to BOT continues to be slightly prolonged, pharyngeal swallow initiated at the level of the valleculae, trace pharyngeal residuals, No significant overt aspiration signs or symptoms. ESOPHAGEAL PHASE: -Unable to visualize esophageal phase 2/2 to patient position. TRIAL TX: Pt was unable to consistently follow verbal commands for implementation of position modifications. Pt did require verbal cues to initiate a swallow with most PO trials. Recommendations: 1. Continue Diet of Moist Puree with [place] Thick Liquids via 1 to 1 careful handfeeding. Please given cues throughout meal to swallow. 2. RECONSIGNMENT CLERK plans to f/u with Patient for dysphagia tx and management 4-5x a week x 1 week 3. Please provide Pt oral care BID. RECONSIGNMENT CLERK communicated to Pt results and recommendations. RECONSIGNMENT CLERK plans to continue to f/u, formal report can be found in care activity section. RECONSIGNMENT CLERK [phone]
[2020-06-30 16:00] VITALS: BP 143/70
--- NOTE | 2020-06-30 16:24 | NUR ---
CASE MANAGEMENT:REVIEW SI;SEPSIS. ENCEPHALOPATHY. DYSPHAGIA. ARF. 98.1 81 21 135/55 100% ON RA IS;BACTRIM DS ALLOPURINOL PO COZAAR PO HEPARIN SUBQ COREG PO SYNTHROID PO IVF NS @ 100 ML/HR MED SURG STATUS DCP;FROM [place] [facility] PLAN; VIDEO SWALLOW EVAL
--- NOTE | 2020-06-30 17:45 | Progress Note ---
DATE: 06/30/2020 This is a 70-year-old male, currently in bed. Awake and slightly confused and has been pocketing the food. Video swallow was done this afternoon. Results are not out. OBJECTIVE: VITAL SIGNS: Blood pressure is 143/70, pulse 64. No fever. CHEST: Bilaterally clear. CARDIOVASCULAR: Regular rhythm. ABDOMEN: Soft. EXTREMITIES: CCE. NEUROLOGICAL: Generalized weakness. ASSESSMENT: 1. Dysphagia. 2. Acute renal failure. 3. Metabolic encephalopathy. 4. Diabetes. 5. Comorbid obesity. PLAN: We are currently awaiting video swallow. Continue heparin, Lipitor. Mechanical soft diet with thickened. Continue current treatment. Genaro Daugherty M.D. DR: ELÍAS JOB#: [id number] CC:
--- NOTE | 2020-06-30 19:06 | NUR ---
HAND-OFF: Report given to ADINA Beckham.
--- NOTE | 2020-06-30 19:30 | NUR ---
NURSE NOTES: Received patient in bed. A&OX1,confused. IV site patent and intact. Bed in lowest position, alarm on. Call light within reach. Will continue to monitor.
[2020-06-30 20:00] VITALS: BP 159/80
[2020-06-30] MEDS: Atorvastatin 20mg tab NG SCH (22:14)
--- NOTE | 2020-06-30 23:51 | Psych Consult Progress Note ---
Psychiatry Progress Note Psychiatry Progress Note Subjective the pt is more alert and out o restraints. Medications Current Medications Medications (Trade) Dose Ordered Sig/Félix Route PRN Reason Start Time Stop Time Status Last Admin Dose Admin Acetaminophen (Tylenol) 650 mg Q4H PRN NG Tem>100.5 06/28/20 18:00 07/27/20 17:59 Allopurinol (allopurinoL) 300 mg DAILY NG 06/29/20 09:00 07/27/20 08:59 06/30/20 08:14 Atorvastatin Calcium (Lipitor) 40 mg BEDTIME NG 06/28/20 21:00 09/25/20 20:59 06/30/20 22:14 Barium Sulfate (Varibar Honey) 250 ml NOW PRN MC RAD 06/30/20 14:45 07/03/20 14:34 Barium Sulfate (Varibar [place]) 240 ml NOW PRN MC RAD 06/30/20 14:45 07/03/20 14:34 Barium Sulfate (Varibar Pudding) 230 ml NOW PRN MC RAD 06/30/20 14:45 07/03/20 14:34 Barium Sulfate (Varibar Thin Liquid powder) 148 gm NOW PRN MC RAD 06/30/20 14:45 07/03/20 14:34 Carvedilol (Coreg) 12.5 mg EVERY 12 HOURS NG 06/28/20 21:00 07/27/20 08:59 06/30/20 22:12 Dextrose (Dextrose 50%) 25 ml Q30M PRN IV Hypoglycemia 06/28/20 15:15 09/26/20 12:44 Dextrose (Dextrose 50%) 50 ml Q30M PRN IV Hypoglycemia 06/28/20 15:15 09/26/20 12:44 Gabapentin (Neurontin) 300 mg THREE TIMES A DAY NG 06/28/20 18:00 07/27/20 12:59 06/30/20 17:08 Heparin Sodium (Porcine) (Heparin 5000 units/ml) 5,000 units EVERY 8 HOURS SUBQ 06/28/20 22:00 08/08/20 21:59 06/30/20 22:14 Insulin Aspart (NovoLOG) BEFORE MEALS AND HS SUBQ 06/28/20 16:30 09/26/20 16:29 Levothyroxine Sodium (Synthroid) 25 mcg 0630 NG 06/29/20 06:30 07/27/20 08:59 06/29/20 05:55 Losartan Potassium (Cozaar) 50 mg DAILY NG 06/29/20 09:00 07/27/20 08:59 06/30/20 08:14 Metformin HCl (Glucophage) 1,000 mg BID NG 06/28/20 18:00 07/27/20 09:29 06/30/20 17:08 Repaglinide (Prandin) 1 mg AC+HS NG 06/28/20 16:30 07/27/20 11:29 06/30/20 22:13 Risperidone (RisperDAL) 1 mg BEDTIME ORAL 06/28/20 21:00 08/12/20 20:59 06/30/20 22:13 Risperidone (RisperDAL) 1 mg BEDTIME PRN ORAL agitation 06/28/20 21:00 08/12/20 14:29 Sodium Chloride 1,000 ml @ 100 mls/hr Q10H IV 06/28/20 15:00 07/24/20 16:14 06/30/20 17:08 Tramadol HCl (Ultram) 50 mg Q6H PRN NG For Pain 06/28/20 15:00 07/04/20 08:59 Trimethoprim/ Sulfamethoxazole (Bactrim-DS) 20 ml EVERY 12 HOURS NG 06/29/20 17:00 07/06/20 16:59 06/30/20 22:13 Allergies: Coded Allergies: No Known Allergies (Unverified , 06/24/20) Objective Data Height (Feet): 5 Height (Inches): 6.00 Weight (Pounds): 198 Additional Comments: waxing waning consciousness, confused, disoriented. Mood is agitated at times. Affect is flat. Thought process, there is a paucity of thought content. Thought content, no suicidal or homicidal ideation. Cognition is impaired. Insight and judgment is impaired. Assessment/Plan Assessment/Plan: ASSESSMENT: [place] I Acute encephalopathy. Schizoaffective disorder. [place] II Deferred. [place] III As above. [place] IV Low. [place] V 20. PLAN: 1. Risperidone p.r.n. 2. Provide the patient with reality orientation and supportive psychotherapy. Yong Montes De Oca MD Jun 30, 2020 23:51
[2020-07-01] VITALS: BP 142/78
[2020-07-01 04:00] VITALS: BP 156/87
[2020-07-01] MEDS: Repaglinide 1mg tab NG SCH ×2 (05:51→11:44)
[2020-07-01] MEDS: Levothyroxine 25mcg tab NG SCH (05:51)
[2020-07-01] MEDS: Heparin 5000 units/ml inj SUBQ SCH ×2 (05:52→14:08)
[2020-07-01] MEDS: NovoLOG Insulin Flexpen SUBQ SCH ×2 (06:30→11:30)
--- NOTE | 2020-07-01 07:27 | NUR ---
HAND-OFF: Report given to Tiff RN. VS stable, Bed in lowest position, call light within reach. Will continue to monitor.
--- NOTE | 2020-07-01 07:28 | NUR ---
NURSE NOTES: Report received from ADINA Bechkam. Patient received awake in bed, alert and oriented x 1, no SOB, bed in lowest position with breaks engaged and alarm on, no signs and symptoms of pain or discomfort noted, IV line on left wrist patent and intact, will continue to monitor and proceed with plan of care. Call light within reach
[2020-07-01 08:00] VITALS: BP 142/77
[2020-07-01] MEDS: Gabapentin 300 MG/6 ML Soln NG SCH ×2 (08:13→14:07)
[2020-07-01] MEDS: Losartan 50mg tab NG SCH (08:13)
[2020-07-01] MEDS: Bactrim Susp 20ml NG SCH (08:14)
[2020-07-01] MEDS: metFORMIN 500mg tab NG SCH (08:14)
[2020-07-01] MEDS: Carvedilol 12.5mg tab NG SCH (08:14)
--- NOTE | 2020-07-01 09:29 | Nephrology Progress Note ---
Assessment/Plan Assessment 1.CHAN resolved 2.CKD 3.HTN Plan Plan monitoring renal function closely avoid NSAID replace electrolyte as need it continue feeding Subjective Subjective pt continue to be confused NAD Objective Objective Last 24 Hour Vital Signs Date Time Temp Pulse Resp B/P (MAP) Pulse Ox O2 Delivery O2 Flow Rate FiO2 07/01/20 09:00 Room Air 07/01/20 08:14 71 142/77 07/01/20 08:13 142/77 07/01/20 08:00 98.9 71 18 142/77 (98) 100 07/01/20 04:00 97.5 75 18 156/87 (110) 96 07/01/20 00:00 97.4 68 19 142/78 (99) 99 06/30/20 22:12 66 159/80 06/30/20 21:00 Room Air 06/30/20 20:00 97.0 66 19 159/80 (106) 100 06/30/20 16:00 97.7 64 21 143/70 (94) 100 06/30/20 12:00 97.3 61 21 136/66 (89) 100 Intake and Output 06/30/20 07/01/20 19:00 07:00 Intake Total 1000 ml 1100 ml Output Total 620 ml Balance 380 ml 1100 ml IV Total 1000 ml 1100 ml Output Urine Total 620 ml # Voids 1 2 # Bowel Movements 1 Height (Feet): 5 Height (Inches): 6.00 Weight (Pounds): 198 Objective HEENT: Extraocular movement intact. Pupils are reactive to light and accommodation. NECK: No JVP. No LAD. No thyromegaly. LUNGS: Clear to auscultation. CARDIAC: Regular rate and rhythm. S1-S2. No murmur. No rub. ABDOMEN: Soft, nontender, and nondistended. EXTREMITIES: No edema. No clubbing. No cyanosis. Reema De Leon MD Jul 01, 2020 09:29
--- NOTE | 2020-07-01 10:10 | NUR ---
DISCHARGE PLANNING PATIENT HAS BEEN REFERRED BACK TO [facility] P: [phone] F: [phone] S/W EZEQUIEL WHO STATES THAT A COVID RESULT IS REQUIRED FOR READMISSION. WILL INFORM
--- NOTE | 2020-07-01 10:44 | NUR ---
RD ASSESSMENT & RECOMMENDATIONS SEE CARE ACTIVITY FOR COMPLETE ASSESSMENT DAILY ESTIMATED NEEDS: Needs based on Obese, wounds, DM / 65kg abw 25-28 kcals/kg 6739-5984 total kcals 1.25-1.5 g protein/kg 81-97 g total protein 25-30 mL/kg 4753-1723 total fluid mLs NUTRITION DIAGNOSIS: Swallowing difficulty R/T dysphagia, AMS as evidenced by pt on pureed texture w/ NTL FRAME POLISHER, NGT now dc'ed, s/p MBSS w/ rec for pureed moist w/ NTL. CURRENT DIET:REGULAR, pureed moist w/ NTL PO DIET RECOMMENDATIONS: LOW NA, CCHO MED/ texture per NONPROFIT DIRECTOR ADDITIONAL RECOMMENDATIONS: * Calibrated bedscale wt * Add Glucerna TID w/ meals w/ poor and variable intake * Monitor PO intake and tolerance closely -> monitor need to resume nonoral feeds * Wound healing: Add Vit C 250mg QD, MVI x 1 * Monitor lytes, replete as needed
--- NOTE | 2020-07-01 11:55 | NUR ---
DYSPHAGIA MANAGEMENT/SWALLOW STATUS/D/C SUMMARY PATIENT CLEARED FOR ST INTERVENTION BY ADINA TORRES. PATIENT POSITIONED AT MIDLINE, 90 DEGREES FOR PARTICIPATION IN P.O. TRIALS. RECOMMENDATIONS FROM VIDEO SWALLOW STUDY COMPLETED YESTERDAY CONFIRMED THAT HIS CURRENT DIET TEXTURE IS SAFEST VISCOSITY TO MINIMIZE RISK OF ASPIRATION. THIS MORNING, PATIENT APPEARS TO PRESENT WITH BOLUS HOLDING OF THE PUREE SOLIDS. WHEN ALTERNATED WITH NECTAR THICK LIQUIDS HE WAS ABLE TO CLEAR BOLUS MORE COMPLETELY/MORE TIMELY. WITH 5 CONSECUTIVE TRIALS OF PUREE ONLY (IN 5ML AMOUNTS VIA SPOON) PATIENT REQUIRED VERBAL CUES TO INITIATE THE PHARYNGEAL PHASE OF SWALLOW. MOD RESIDUE NOTED ON LINGUAL SURFACE POST SWALLOW. WITH SEQUENCE OF 5 TRIALS ALTERNATING SOLIDS/LIQUIDS VIA SPOON, THE PATIENT READILY TRIGGERED PHARYNGEAL PHASE OF SWALLOW AND NO RESIDUE REMAINED ON LINGUAL SURFACE. THE PATIENT REFUSED ANY FURTHER TRIALS. DISCUSSED FINDINGS WITH ADINA TORRES. SHE REPORTED PLAN FOR PATIENT TO TRANSFER BACK TO [facility] THIS AFTERNOON. CLINICIAN COPIED VIDEO SWALLOW STUDY FOR PATIENTS TRANSFER PACKET TO INSURE CONTINUITY OF CARE RELATIVE TO P.O. PRECAUTIONS. TREATMENT GOAL OF SAFE SUFFICIENT P.O. INTAKE TO SUPPORT NUTRITION/HYDRATION NEEDS WAS PARTIALLY MET RELATIVE TO IDENTIFYING SAFEST VISCOSITY FOR MINIMIZING RISK OF ASPIRATION, BUT NOT MET RELATIVE TO AMOUNT OF INTAKE. PATIENTS INTAKE LEVELS WERE SUBOPTIMAL TO SUPPORT NUTRITION/HYDRATION NEEDS. D/C FROM [facility]..
[2020-07-01 12:00] VITALS: BP 133/79
--- NOTE | 2020-07-01 12:23 | NUR ---
DISCHARGE PLANNING COVID PCR RESULT HAS RETURNED AND FAXED TO [facility] P: [phone] F: [phone] S/W MICHAELA WHO CONFIRMED PATIENT ACCEPTED TO RETURN WITH BED ASSIGNMENT [facility] TRANSPORTATION SCHEDULED WITH [facility] EXT [id number] WITH ETA @ 1500 PM PER BOWEN
[2020-07-01] MEDS ORDERED: HEPARIN SO5000 UNIT2 SUBQ (13:15)
[2020-07-01] MEDS ORDERED: RISPERDAL1 MG PO (13:16)
--- NOTE | 2020-07-01 15:03 | Pulmonology Progress Note ---
Subjective ROS Limited/Unobtainable: Yes Interval Events: None new Constitutional: Reports: no symptoms HEENT: Repors: no symptoms Respiratory: Reports: no symptoms Cardiovascular: Reports: no symptoms Gastrointestinal/Abdominal: Reports: no symptoms Genitourinary: Reports: no symptoms Allergies: Coded Allergies: No Known Allergies (Unverified , 06/24/20) Objective Last 24 Hour Vital Signs Date Time Temp Pulse Resp B/P (MAP) Pulse Ox O2 Delivery O2 Flow Rate FiO2 07/01/20 12:00 98.1 21 133/79 (97) 100 07/01/20 09:00 Room Air 07/01/20 08:14 71 142/77 07/01/20 08:13 142/77 07/01/20 08:00 98.9 71 18 142/77 (98) 100 07/01/20 04:00 97.5 75 18 156/87 (110) 96 07/01/20 00:00 97.4 68 19 142/78 (99) 99 06/30/20 22:12 66 159/80 06/30/20 21:00 Room Air 06/30/20 20:00 97.0 66 19 159/80 (106) 100 06/30/20 16:00 97.7 64 21 143/70 (94) 100 Intake and Output 06/30/20 07/01/20 19:00 07:00 Intake Total 1000 ml 1100 ml Output Total 620 ml Balance 380 ml 1100 ml IV Total 1000 ml 1100 ml Output Urine Total 620 ml # Voids 1 2 # Bowel Movements 1 General Appearance: no acute distress HEENT: normocephalic Respiratory: chest wall non-tender Cardiovascular: normal peripheral pulses Abdomen: soft, non tender Microbiology Date/Time Source Procedure Growth Status 07/01/20 11:15 Nasopharynx SARS-CoV-2 RdRp Gene Assay - Final Complete Laboratory Tests 06/30/20 20:59: POC Whole Blood Glucose 97 07/01/20 11:42: POC Whole Blood Glucose 108H Current Medications Medications (Trade) Dose Ordered Sig/Félix Route PRN Reason Start Time Stop Time Status Last Admin Dose Admin Acetaminophen (Tylenol) 650 mg Q4H PRN NG Tem>100.5 06/28/20 18:00 07/27/20 17:59 Allopurinol (allopurinoL) 300 mg DAILY NG 8/4/20 09:00 07/27/20 08:59 07/01/20 08:14 Atorvastatin Calcium (Lipitor) 40 mg BEDTIME NG 06/28/20 21:00 09/25/20 20:59 06/30/20 22:14 Barium Sulfate (Varibar Honey) 250 ml NOW PRN RAD 06/30/20 14:45 07/03/20 14:34 Barium Sulfate (Varibar [place]) 240 ml NOW PRN RAD 06/30/20 14:45 07/03/20 14:34 Barium Sulfate (Varibar Pudding) 230 ml NOW PRN RAD 06/30/20 14:45 07/03/20 14:34 Barium Sulfate (Varibar Thin Liquid powder) 148 gm NOW PRN RAD 06/30/20 14:45 07/03/20 14:34 Carvedilol (Coreg) 12.5 mg EVERY 12 HOURS NG 06/28/20 21:00 07/27/20 08:59 07/01/20 08:14 Dextrose (Dextrose 50%) 25 ml Q30M PRN IV Hypoglycemia 06/28/20 15:15 09/26/20 12:44 Dextrose (Dextrose 50%) 50 ml Q30M PRN IV Hypoglycemia 06/28/20 15:15 09/26/20 12:44 Gabapentin (Neurontin) 300 mg THREE TIMES A DAY NG 06/28/20 18:00 07/27/20 12:59 07/01/20 14:07 Heparin Sodium (Porcine) (Heparin 5000 units/ml) 5,000 units EVERY 8 HOURS SUBQ 06/28/20 22:00 08/08/20 21:59 07/01/20 14:08 Insulin Aspart (NovoLOG) BEFORE MEALS AND HS SUBQ 06/28/20 16:30 09/26/20 16:29 Levothyroxine Sodium (Synthroid) 25 mcg 0630 NG 06/29/20 06:30 07/27/20 08:59 07/01/20 05:51 Losartan Potassium (Cozaar) 50 mg DAILY NG 06/29/20 09:00 07/27/20 08:59 07/01/20 08:13 Metformin HCl (Glucophage) 1,000 mg BID NG 06/28/20 18:00 07/27/20 09:29 07/01/20 08:14 Repaglinide (Prandin) 1 mg AC+HS NG 06/28/20 16:30 07/27/20 11:29 07/01/20 11:44 Risperidone (RisperDAL) 1 mg BEDTIME ORAL 06/28/20 21:00 08/12/20 20:59 06/30/20 22:13 Risperidone (RisperDAL) 1 mg BEDTIME PRN ORAL agitation 06/28/20 21:00 08/12/20 14:29 Sodium Chloride 1,000 ml @ 100 mls/hr Q10H IV 06/28/20 15:00 07/24/20 16:14 07/01/20 14:07 Tramadol HCl (Ultram) 50 mg Q6H PRN NG For Pain 06/28/20 15:00 07/04/20 08:59 Trimethoprim/ Sulfamethoxazole (Bactrim-DS) 20 ml EVERY 12 HOURS NG 06/29/20 17:00 07/06/20 16:59 07/01/20 08:14 Assessment/Plan Assessment/Plan ASSESSMENT: 1. Acute renal failure. Improved 2. Hypertension 3. Altered mental status. 4. COPD; stable PLAN: Will continue oxygen prn and pulmonary hygiene Will follow Saturating well on Harrison Green M.D. Harrison Green MD Jul 01, 2020 15:03
--- NOTE | 2020-07-01 16:19 | NUR ---
NURSE NOTES: Patient was discharged back to [facility] in stable condition accompanied by heart surgeon at 1545. All discharge paperworks completed, no belongings listed upon admission. IV line and ID band removed. No s/s/x of pain noted upon DC. Vital signs WNL.
--- NOTE | 2020-07-01 21:15 | Progress Note ---
DATE: 07/01/2020 SUBJECTIVE: This is elderly male, currently more awake and alert, doing better. PHYSICAL EXAMINATION: VITAL SIGNS: Stable. HEENT: NAD. CHEST: Bilaterally clear. CARDIOVASCULAR: Regular rhythm. ABDOMEN: Soft. EXTREMITIES: CCE. ASSESSMENT: 1. Acute renal failure. 2. Metabolic encephalopathy. 3. Dehydration. 4. Dementia. PLAN: We will currently continue current treatment. Genaro Daugherty M.D. DR: Katja JOB#: [id number] CC:
--- NOTE | 2020-07-01 23:23 | Psych Consult Progress Note ---
Psychiatry Progress Note Psychiatry Progress Note Subjective the pt is more alert and out o restraints. Neurological/Psychiatric: Reports: anxiety, depressed Allergies: Coded Allergies: No Known Allergies (Unverified , 06/24/20) Objective Data Height (Feet): 5 Height (Inches): 6.00 Weight (Pounds): 198 General Appearance: no apparent distress, alert, confused, overweight Additional Comments: waxing waning consciousness, confused, disoriented. Mood is agitated at times. Affect is flat. Thought process, there is a paucity of thought content. Thought content, no suicidal or homicidal ideation. Cognition is impaired. Insight and judgment is impaired. Assessment/Plan [place] I: ASSESSMENT: [place] I Acute encephalopathy. Schizoaffective disorder. [place] II Deferred. [place] III As above. [place] IV Low. [place] V 20. PLAN: 1. Risperidone p.r.n. 2. Provide the patient with reality orientation and supportive psychotherapy. Status Narrative ASSESSMENT: [place] I Acute encephalopathy. Schizoaffective disorder. [place] II Deferred. [place] III As above. [place] IV Low. [place] V 20. PLAN: 1. Risperidone p.r.n. 2. Provide the patient with reality orientation and supportive psychotherapy. Assessment/Plan: ASSESSMENT: [place] I Acute encephalopathy. Schizoaffective disorder. [place] II Deferred. [place] III As above. [place] IV Low. [place] V 20. PLAN: 1. Risperidone p.r.n. 2. Provide the patient with reality orientation and supportive psychotherapy. Yong Montes De Oca MD Jul 01, 2020 23:23
--- NOTE | 2020-07-04 18:19 | Discharge Summary ---
Discharge Summary Discharge Summary _ DATE OF ADMISSION: 06/24/2020 DATE OF DISCHARGE: 07/01/2020 DISCHARGED BY: Dr. Genaro Daugherty CONSULTANTS: Dr. Yong De Leon [facility] HOSPITAL COURSE: Patient is a 70-year-old [place] male, who came to the emergency room due to confusion. Patient had poor p.o. intake for a few days. Patient has underlying history of dementia. He was found to have elevated BUN and creatinine on routine lab testing according to PMD. He has medical history significant for hypertension, hyperlipidemia, diabetes and dementia. Upon evaluation at ED, vital signs were stable. Blood work showed WBC 11.2. Hemoglobin and hematocrit were stable. Electrolytes were normal. BUN was elevated to 58 and creatinine to 2.9. Troponin was negative. Urinalysis was negative. Chest x-ray showed left lung atelectasis. Patient was admitted to telemetry for evaluation of acute kidney injury. Kidney function and electrolytes were monitored. Avoid nephrotoxic's. Previous medications were resumed. Patient was altered. NG tube was inserted. He was started on tube feeding. He was placed on aspiration precautions. He was given pulmonary hygiene. He underwent psychiatric evaluation. Patient was confused. He was placed on bilateral soft wrist restraints for safety. Patient was diagnosed to have acute encephalopathy and schizoaffective disorder. He was given risperidone. Urine culture showed growth of MRSA. He was given Bactrim. Patient was more alert. Video swallow was done. Patient was recommended moist pure with nectar thick liquid diet. Kidney function normalized. Patient was more alert. Patient was cleared for discharge. FINAL DIAGNOSES: Acute metabolic encephalopathy Dehydration Dementia Acute kidney injury, resolved Chronic kidney disease Hypertension Schizoaffective disorder COPD stable DISPOSITION: Patient was discharged back to SNF. DISCHARGE MEDICATIONS: Refer to Discharge Medication List. I have been assigned to complete a discharge summary on this account, I was not involved with the patient's management.--FERNANDO Cruz Jacqueline Robles NP Jul 04, 2020 18:19
== END 2020-07-01 15:55 | DRG 682 ==
LOC: EDBD 12:34 → EMR 13:05 → 2E 13:16 → EDBEDREQ 14:46 → 4E 06-28 14:45
DX: N17.0 Acute kidney failure with tubular necrosis (principal); G93.41 Metabolic encephalopathy; I12.9 Hypertensive chronic kidney disease with stage 1 through stage 4 chronic kidney disease, or unspecified chronic kidney disease; Z86.19 Personal history of other infectious and parasitic diseases; I10 Essential (primary) hypertension; E87.5 Hyperkalemia; G89.29 Other chronic pain; E11.22 Type 2 diabetes mellitus with diabetic chronic kidney disease; R13.10 Dysphagia, unspecified; F03.90 Unspecified dementia, unspecified severity, without behavioral disturbance, psychotic disturbance, mood disturbance, and anxiety; J44.9 Chronic obstructive pulmonary disease, unspecified; E03.9 Hypothyroidism, unspecified; K21.9 Gastro-esophageal reflux disease without esophagitis; E78.5 Hyperlipidemia, unspecified; F25.0 Schizoaffective disorder, bipolar type; M54.9 Dorsalgia, unspecified; E66.01 Morbid (severe) obesity due to excess calories
CPT/HCPCS: 36415; 71045; 74018; 74230; 76770; 80048; 80053; 81001; 81003; 82043; 82044; 82550; 82553; 82962; 83605; 84300; 84484; 85025; 87040; 87081; 87086; 87181; 89050; 92610; 93005; 96360; 99285; J1815; J7030; U0002